=== PATIENT | male | born 1950 | race Two or more races ===

== ENCOUNTER → 2019-10-02 | Outpatient (CLI) | payer MEDICAID ==
[~2019-10-02] MED LIST: ASPI81CH43 PO; ATENPOW10 PO; ATOR10TA PO; DOCU1CAP31 PO; FLUT1SPR5 EACHNOSTRI; LEVO75TA6 PO; LISI-648 PO; METF-370 PO; METO25TA5 PO; POTA10TA51 PO; RANO500T2 PO; RANO500T3 PO; TICA90TA PO
== END | disposition home or self-care (01) ==
LOC: Rad HDHVI 13:48
PROVIDERS: ATTEND Internal Medicine
DX: I07.1 Rheumatic tricuspid insufficiency (principal); I25.10 Atherosclerotic heart disease of native coronary artery without angina pectoris
CPT/HCPCS: 93306

== ENCOUNTER → 2019-10-14 | Outpatient (CLI) | payer MEDICAID ==
[~2019-10-14] VITALS: Ht 172.7 cm; Wt 113.4 kg
[~2019-10-14] MED LIST changes: +ADENOSINE 90 MG/30 ML INJ IV ONE; +ADENOSINE 95 MG in GIVE UN-DILUTED 0 ML IV ONE; -ATOR10TA PO; -DOCU1CAP31 PO; -FLUT1SPR5 EACHNOSTRI; -LEVO75TA6 PO; -LISI-648 PO; -METO25TA5 PO; -POTA10TA51 PO; -RANO500T2 PO; -RANO500T3 PO; -TICA90TA PO
== END | disposition home or self-care (01) ==
LOC: Rad HDHVI 07:41
PROVIDERS: ATTEND Internal Medicine
DX: Z01.810 Encounter for preprocedural cardiovascular examination (principal); I25.10 Atherosclerotic heart disease of native coronary artery without angina pectoris; I10 Essential (primary) hypertension; I25.2 Old myocardial infarction; E11.9 Type 2 diabetes mellitus without complications; E78.00 Pure hypercholesterolemia, unspecified; Z95.2 Presence of prosthetic heart valve; Z82.49 Family history of ischemic heart disease and other diseases of the circulatory system
CPT/HCPCS: 78452; 82962; 93005; 96374; 96375; A9500; J0153

== ENCOUNTER → 2019-11-13 | Outpatient (CLI) | payer MEDICAID ==
[~2019-11-13] VITALS: Ht 172.7 cm; Wt 107.5 kg
[~2019-11-13] MED LIST changes: -ADENOSINE 90 MG/30 ML INJ IV ONE; -ADENOSINE 95 MG in GIVE UN-DILUTED 0 ML IV ONE; +ATOR10TA PO; +DOCU1CAP31 PO; +FLUT1SPR5 EACHNOSTRI; +LEVO75TA6 PO; +LISI-648 PO; +METO25TA5 PO; +POTA10TA51 PO; +RANO500T2 PO; +RANO500T3 PO; +TICA90TA PO
[2019-11-13 09:05] VITALS: BP 142/89
--- NOTE | 2019-11-13 09:05 | NUR ---
PATIENT INTO CLINIC FOR SCHEDULED PREOP, AAOX4, AMBULATORY, BREATHING EVEN AND UNLABORED.
[2019-11-13 09:33] VITALS: BP 138/84
--- NOTE | 2019-11-13 09:33 | NUR ---
Pre-Op Discharge Summary: See e-MAR for any medications given for this visit. Pre-op orders received and carried out per MD of EKG, LABS and chest xrays. Patient given a copy of EKG with instructions to go to [facility] out patient for further follow up care.
[2019-11-13 12:06] LABS: Basophils # (auto) 0.1 10 ^3/uL (0-0.2); Basophils % (auto) 0.7 % (0.0-2.0); Eosinophils # (auto) 0 10 ^3/uL (0-0.8); Eosinophils % (auto) 0.7 % (0.0-7.0); Hematocrit 51.8 % (41.0-53.0); Hemoglobin 17.3 g/dL (13.5-17.5); Lymphocytes # (auto) 1.8 10 ^3/uL (0.4-5.4); Lymphocytes % (auto) 24.2 % (10.0-50.0); Mean Corpuscular Hemoglobin 30.3 pg (28.0-32.0); Mean Corpuscular Hgb Conc. 33.4 g/dL (32.0-36.0); Mean Corpuscular Volume 90.6 fL (80.0-100.0); Monocytes # (auto) 0.7 10 ^3/uL (0-1.3); Monocytes % (auto) 9.9 % (0.0-12.0); Neutrophils # (auto) 4.8 10 ^3/uL (1.6-8.6); Neutrophils % (auto) 64.5 % (37.0-80.0); Nucleated Red Blood Cells % 0.1 %; Platelet Count (auto) 338 10^3/uL (140-450); Red Blood Cells 5.72 10^6/uL (4.5-5.90); Red Cell Distribution Width 13.9 % (11.8-14.3); White Blood Cell 7.4 10^3/uL (4.4-10.8)
[2019-11-13 12:12] LABS: BUN/Creatinine Ratio 12.7; Calcium 10.2 mg/dL (8.5-10.1)
[2019-11-13 12:18] LABS: INR 1.02 (0.9-1.15); Partial Thromboplastin Time 29.1 sec (23.64-32.05)
== END | disposition home or self-care (01) ==
LOC: Rad HDHVI 08:59
PROVIDERS: ATTEND Internal Medicine
DX: Z01.812 Encounter for preprocedural laboratory examination (principal); E11.9 Type 2 diabetes mellitus without complications; I25.10 Atherosclerotic heart disease of native coronary artery without angina pectoris; I10 Essential (primary) hypertension; D64.9 Anemia, unspecified; R79.1 Abnormal coagulation profile; R94.39 Abnormal result of other cardiovascular function study; R07.9 Chest pain, unspecified; Z95.0 Presence of cardiac pacemaker
CPT/HCPCS: 36415; 71046; 80048; 85025; 85610; 85730; 93005; G0463

== ENCOUNTER 2019-11-20 06:56 | Day surgery (SDC) | payer MEDICAID ==
[~2019-11-20] VITALS: Ht 172.7 cm; Wt 107.5 kg
[~2019-11-20 06:56] MED LIST changes: -ATENPOW10 PO; -FLUT1SPR5 EACHNOSTRI; -POTA10TA51 PO; -RANO500T2 PO; -TICA90TA PO
[2019-11-20] MEDS ORDERED: fentaNYL CITRATE 100 MCG/2 ML VL ONE (07:49)
[2019-11-20] MEDS ORDERED: VERAPAMIL 2.5MG/ML INJ 2ML VIAL IV ONE (07:49)
[2019-11-20] MEDS ORDERED: HEPARIN SODIUM (PORCINE) 5000 UNITS/ML 1ML VIAL ONE (07:49)
[2019-11-20] MEDS ORDERED: ATROPINE SULF 1 MG/10ml SYR ONE (07:49)
[2019-11-20] MEDS ORDERED: ANGIOMAX 250 MG VIAL IV ONE ×2 (07:49→10:30)
[2019-11-20] MEDS ORDERED: IODIXANOL 320MG/ML 100ML BTL IV ONE (07:50)
[2019-11-20] MEDS ORDERED: SODIUM CHL 0.9% 50 ML ONE ×2 (07:50→10:30)
[2019-11-20] MEDS ORDERED: MIDAZOLAM HCL 1MG/1ML-2 ML VIAL ONE (07:50)
[2019-11-20] MEDS ORDERED: LIDOCAINE 2%HCL (LOCAL ANESTH.) INJ 20ML MDV ONE (07:50)
[2019-11-20] MEDS ORDERED: IOHEXOL 350 MG/ML 100ML IJ ONE (10:22)
[2019-11-20] MEDS ORDERED: TICAGRELOR 90 MG TAB ONE (10:45)
[2019-11-20] MEDS ORDERED: DOCUSATE SOD 100 MG CAP PO PRN (11:00)
[2019-11-20] MEDS ORDERED: ACETAMINOPHEN 500 MG TAB PO PRN (11:00)
[2019-11-20] MEDS ORDERED: HYDROcodone-ACET 5/325MG TAB PO PRN (11:00)
[2019-11-20] MEDS ORDERED: NITROGLYCERIN 0.4 MG SL TAB SL PRN (11:00)
[2019-11-20] MEDS ORDERED: ONDANSETRON HCL 4 MG/2 ML VIAL IV PRN (11:00)
[2019-11-20] MEDS ORDERED: MORPHINE SULF INJ 2 MG/ML SYRINGE 1ML IV PRN (11:00)
[2019-11-20] MEDS ORDERED: DEXTROSE (50%) 50ML SYRG IV PRN (11:00)
[2019-11-20] MEDS ORDERED: RANOLAZINE ER 500 MG TAB PO ONE (11:30)
[2019-11-20] MEDS ORDERED: InsuLIN REG 1unit/0.01ml Soln (100units/ml) SC SCH (11:30)
[2019-11-20] MEDS ORDERED: ACCU-CHEK COMFORT CURVE STRIP VI SCH (11:30)
[2019-11-20] MEDS ORDERED: LEVOTHYROXINE SODIUM 25 MCG TAB PO ONE (11:30)
[2019-11-20] MEDS ORDERED: METOPROLOL TARTRATE 25 MG TAB PO ONE (11:30)
[2019-11-20 12:29] LABS: Albumin 3.6 g/dL (3.4-5.0); Calcium 9.2 mg/dL (8.5-10.1)
[2019-11-20 12:33] LABS: BUN/Creatinine Ratio 16.4; Bilirubin, Total 0.5 mg/dL (0.2-1.0); Total Protein 6.4 g/dL (6.4-8.2)
[2019-11-20] MEDS ORDERED: LISINOPRIL 10 MG TAB PO SCH (18:00)
[2019-11-20] MEDS ORDERED: ASPirin 81 mg TAB PO SCH (18:00)
[2019-11-20] MEDS ORDERED: RANOLAZINE ER 500 MG TAB PO SCH (22:00)
[2019-11-20] MEDS ORDERED: ATORVASTATIN 20 MG TAB PO SCH (22:00)
[2019-11-20] MEDS ORDERED: TICAGRELOR 90 MG TAB PO SCH (22:00)
[2019-11-21] MEDS ORDERED: METOPROLOL TARTRATE 25 MG TAB PO SCH (07:00)
[2019-11-21] MEDS ORDERED: LEVOTHYROXINE SODIUM 25 MCG TAB PO SCH (10:00)
== END 2019-11-20 16:14 | disposition home or self-care (01) ==
LOC: CATH 06:56
PROVIDERS: ATTEND Internal Medicine
DX: R94.39 Abnormal result of other cardiovascular function study (principal); I25.10 Atherosclerotic heart disease of native coronary artery without angina pectoris; E78.00 Pure hypercholesterolemia, unspecified; M19.90 Unspecified osteoarthritis, unspecified site; I25.2 Old myocardial infarction; Z95.5 Presence of coronary angioplasty implant and graft; I10 Essential (primary) hypertension; Z79.82 Long term (current) use of aspirin; Z11.59 Encounter for screening for other viral diseases; Z79.899 Other long term (current) drug therapy; Z98.890 Other specified postprocedural states
CPT/HCPCS: 36415; 80053; 82962; 93458; 93571; C1725; C1726; C1769; C1874; C1887; C1894; C9607; J0583; J1644; J2250; J3010; Q9967; U0003; 99152; 99153; C9601

== ENCOUNTER 2019-11-22 05:41 | Inpatient (IN) | payer MEDICAID ==
[~2019-11-22] VITALS: Ht 170.2 cm; Wt 69.1 kg
[~2019-11-22 05:41] MED LIST changes: -RANO500T3 PO
[2019-11-22 08:40] LABS: Basophils # (auto) 0 10 ^3/uL (0-0.2); Basophils % (auto) 0.2 % (0.0-2.0); Eosinophils # (auto) 0 10 ^3/uL (0-0.8); Eosinophils % (auto) 0.1 % (0.0-7.0); Hematocrit 52.3 % (41.0-53.0); Hemoglobin 16.9 g/dL (13.5-17.5); Lymphocytes # (auto) 0.7 10 ^3/uL (0.4-5.4); Lymphocytes % (auto) 5.4 % (10.0-50.0); Mean Corpuscular Hemoglobin 29.1 pg (28.0-32.0); Mean Corpuscular Hgb Conc. 32.3 g/dL (32.0-36.0); Mean Corpuscular Volume 90.2 fL (80.0-100.0); Monocytes # (auto) 1.2 10 ^3/uL (0-1.3); Monocytes % (auto) 9.7 % (0.0-12.0); Neutrophils # (auto) 10.6 10 ^3/uL (1.6-8.6); Neutrophils % (auto) 84.6 % (37.0-80.0); Platelet Count (auto) 306 10^3/uL (140-450); Red Cell Distribution Width 14.3 % (11.8-14.3); White Blood Cell 12.6 10^3/uL (4.4-10.8)
[2019-11-22 08:55] LABS: Calcium 11.1 mg/dL (8.5-10.1); Magnesium 2.7 mg/dL (1.6-2.6); Potassium 4.1 mmol/L (3.5-5.1)
[2019-11-22 09:03] LABS: BUN/Creatinine Ratio 21.4; Bilirubin, Total 0.7 mg/dL (0.2-1.0); Total Protein 7.8 g/dL (6.4-8.2)
[2019-11-22 10:22] LABS: Urine Bacteria FEW /hpf (None Seen); Urine Blood Negative /uL (Negative); Urine Mucus FEW (None Seen); Urine Specific Gravity 1.037 (1.001-1.035); Urine WBC 3 /hpf (0 - 3)
[2019-11-22] MEDS ORDERED: ONDANSETRON HCL 4 MG/2 ML VIAL IV ONE (10:30)
[2019-11-22] MEDS ORDERED: MORPHINE SULFATE 4 MG/ML SYR/VIAL IV ONE (10:30)
[2019-11-22] MEDS ORDERED: NITROGLYCERIN 0.4 MG SL TAB SL PRN (12:30)
[2019-11-22] MEDS ORDERED: MORPHINE SULF INJ 2 MG/ML SYRINGE 1ML IV PRN (12:30)
[2019-11-22] MEDS ORDERED: GASTROGRAFIN 120 ML SOL ONE (12:38)
[2019-11-22] MEDS ORDERED: DEXTROSE (50%) 50ML SYRG IV PRN (13:00)
[2019-11-22] MEDS ORDERED: cefTRIAXone 1GM/50ML D5W 50 ML IV ONE (13:00)
[2019-11-22] MEDS ORDERED: TICA90TA PO (13:52)
[2019-11-22] MEDS ORDERED: RANO500T2 PO (13:52)
[2019-11-22] MEDS ORDERED: FLUT1SPR5 EACHNOSTRI (13:52)
[2019-11-22] MEDS: SODIUM CHLORIDE 0.9% 1,000 ML IV SCH (14:04)
[2019-11-22] MEDS: FAMOTIDINE (10MG/ML) 2ML VL IV SCH (14:39)
[2019-11-22] MEDS: metroNIDAZOLE 500MG/100ML 100 ML IV SCH (14:39)
[2019-11-22] MEDS: MORPHINE SULF INJ 2 MG/ML SYRINGE 1ML IV PRN ×2 (16:40→21:27)
[2019-11-22] MEDS: PROMETHAZINE HCL 25 MG/ML 1ML IV PRN ×2 (16:40→21:27)
--- NOTE | 2019-11-22 17:47 | NUR ---
Telemetry admit from ER LAZARO SMITH admitted to Telemetry unit after SBAR received from ELEVATOR BUILDER. Patient oriented to Kia Gonzales RN primary RN, unit, room, bed, and unit policies regarding patient care and visiting hours. Patient now on continuous telemetry monitoring, tele box # 28 and telemetry reading on arrival to unit is Sinus Tachycardia 110 bpm. Patient weighed by bedscale and encouraged to call if they need something. All questions and concerns addressed, patient verbalized understanding.
[2019-11-22] MEDS: InsuLIN REG 1unit/0.01ml Soln (100units/ml) SC SCH (18:00)
[2019-11-22] MEDS: ACCU-CHEK COMFORT CURVE STRIP VI SCH (18:25)
--- NOTE | 2019-11-22 19:37 | NUR ---
CLOSING SHIFT NOTE ENDORSE CARE TO FELT [employer]AT STEAMER RN CAIO. PATIENT HAS NO S/S OF DISTRESS/SOB OR PAIN AT THIS TIME.
[2019-11-22 22:00] VITALS: BP 141/87
--- NOTE | 2019-11-22 22:30 | NUR ---
heart rated elevated due to being on commode for vitals at 2200. patient heart rate back in bed is 105
[2019-11-23] MEDS: metroNIDAZOLE 500MG/100ML 100 ML IV SCH ×4 (01:12→21:13)
[2019-11-23] MEDS: SODIUM CHLORIDE 0.9% 1,000 ML IV SCH ×2 (01:13→09:14)
[2019-11-23] MEDS: ACCU-CHEK COMFORT CURVE STRIP VI SCH ×4 (01:25→17:58)
[2019-11-23] MEDS: FAMOTIDINE (10MG/ML) 2ML VL IV SCH ×2 (01:26→12:35)
[2019-11-23] MEDS: MORPHINE SULF INJ 2 MG/ML SYRINGE 1ML IV PRN ×4 (01:31→21:13)
[2019-11-23 05:00] VITALS: BP 142/86
[2019-11-23] MEDS: InsuLIN REG 1unit/0.01ml Soln (100units/ml) SC SCH ×4 (06:00→18:00)
[2019-11-23 07:18] LABS: Basophils # (auto) 0 10 ^3/uL (0-0.2); Basophils % (auto) 0.3 % (0.0-2.0); Eosinophils # (auto) 0 10 ^3/uL (0-0.8); Eosinophils % (auto) 0.2 % (0.0-7.0); Hematocrit 51.7 % (41.0-53.0); Lymphocytes # (auto) 1.7 10 ^3/uL (0.4-5.4); Lymphocytes % (auto) 10.4 % (10.0-50.0); Mean Corpuscular Hemoglobin 29.8 pg (28.0-32.0); Mean Corpuscular Hgb Conc. 32.8 g/dL (32.0-36.0); Mean Corpuscular Volume 90.7 fL (80.0-100.0); Monocytes # (auto) 1.7 10 ^3/uL (0-1.3); Monocytes % (auto) 10.8 % (0.0-12.0); Neutrophils # (auto) 12.4 10 ^3/uL (1.6-8.6); Neutrophils % (auto) 78.3 % (37.0-80.0); Platelet Count (auto) 217 10^3/uL (140-450); Red Cell Distribution Width 14.4 % (11.8-14.3); White Blood Cell 15.8 10^3/uL (4.4-10.8)
--- NOTE | 2019-11-23 07:36 | NUR ---
PER CAIO HIS SHIFT NG OUTPUT IS 200
[2019-11-23 07:40] LABS: Albumin 3.8 g/dL (3.4-5.0); Anion Gap 12 (5-15); Blood Urea Nitrogen 31 mg/dL (7-18); Calcium 9.2 mg/dL (8.5-10.1); Carbon Dioxide 18 mmol/L (21-32); Chloride 112 mmol/L (98-107); Glucose 145 mg/dL (74-106); Sodium 142 mmol/L (136-145)
[2019-11-23 07:43] LABS: Alanine Aminotransferase 22 U/L (16-61); Aspartate Aminotransferase 9 U/L (15-37); BUN/Creatinine Ratio 24.6; GFR African American 73 mL/min; GFR Non-African American 61 mL/min
[2019-11-23 07:45] LABS: Alkaline Phosphatase 72 U/L (45-117); Bilirubin, Total 0.6 mg/dL (0.2-1.0); Total Protein 7.5 g/dL (6.4-8.2)
[2019-11-23 08:00] VITALS: BP 158/83
--- NOTE | 2019-11-23 08:00 | NUR ---
Opening Shift Note Assumed care of patient, awake and alert. No S/S of distress/SOB or pain. Instructed on POC and to call for assist PRN, will continue to monitor for changes Q1hr and PRN. Bed locked in lowest position with two side rails up and call light in reach.
[2019-11-23 09:00] VITALS: BP 158/83
[2019-11-23] MEDS: cefTRIAXone 1GM/50ML D5W 50 ML IV SCH (09:36)
[2019-11-23] MEDS: ENOXAPARIN SOD 40 MG/0.4 ML SYRINGE SC SCH (09:36)
[2019-11-23] MEDS: D5W/SOD CHL 0.45%/KCL 20MEQ 1,000 ML IV SCH (17:51)
--- NOTE | 2019-11-23 18:10 | NUR ---
NG TUBE CLAMPED PATIENT TOLERATING WELL.
--- NOTE | 2019-11-23 18:47 | NUR ---
OUT PUT PER MY SHIFT IS 50ML
[2019-11-23 22:00] VITALS: BP 137/73
[2019-11-24] MEDS: ACCU-CHEK COMFORT CURVE STRIP VI SCH ×4 (00:10→17:47)
[2019-11-24] MEDS: FAMOTIDINE (10MG/ML) 2ML VL IV SCH ×2 (00:10→15:52)
[2019-11-24] MEDS: D5W/SOD CHL 0.45%/KCL 20MEQ 1,000 ML IV SCH ×3 (01:50→18:11)
[2019-11-24 05:00] VITALS: BP 132/75
[2019-11-24] MEDS: metroNIDAZOLE 500MG/100ML 100 ML IV SCH ×3 (05:10→21:22)
[2019-11-24] MEDS: MORPHINE SULF INJ 2 MG/ML SYRINGE 1ML IV PRN ×3 (05:10→21:41)
[2019-11-24] MEDS: InsuLIN REG 1unit/0.01ml Soln (100units/ml) SC SCH ×4 (05:11→18:00)
--- NOTE | 2019-11-24 06:26 | NUR ---
LAZARO DID NOT HAVE ANY EPISODES OF NAUSEA OR VOMITING FOR SHIFT. PATIENT TOLERATED WELL.
[2019-11-24 07:20] LABS: Basophils # (auto) 0 10 ^3/uL (0-0.2); Basophils % (auto) 0.3 % (0.0-2.0); Eosinophils # (auto) 0.1 10 ^3/uL (0-0.8); Eosinophils % (auto) 1.5 % (0.0-7.0); Hematocrit 44.8 % (41.0-53.0); Hemoglobin 14.7 g/dL (13.5-17.5); Lymphocytes # (auto) 0.9 10 ^3/uL (0.4-5.4); Lymphocytes % (auto) 9.9 % (10.0-50.0); Mean Corpuscular Hemoglobin 29.9 pg (28.0-32.0); Mean Corpuscular Hgb Conc. 32.7 g/dL (32.0-36.0); Mean Corpuscular Volume 91.4 fL (80.0-100.0); Monocytes # (auto) 1.1 10 ^3/uL (0-1.3); Monocytes % (auto) 12.5 % (0.0-12.0); Neutrophils # (auto) 6.5 10 ^3/uL (1.6-8.6); Neutrophils % (auto) 75.8 % (37.0-80.0); Platelet Count (auto) 241 10^3/uL (140-450); Red Cell Distribution Width 14.4 % (11.8-14.3); White Blood Cell 8.6 10^3/uL (4.4-10.8)
[2019-11-24 07:41] LABS: Calcium 8.6 mg/dL (8.5-10.1); Potassium 3.6 mmol/L (3.5-5.1)
[2019-11-24 07:45] LABS: BUN/Creatinine Ratio 33.3
[2019-11-24 08:00] VITALS: BP 124/81
[2019-11-24 09:00] VITALS: BP 124/81
[2019-11-24] MEDS: cefTRIAXone 1GM/50ML D5W 50 ML IV SCH (09:26)
[2019-11-24] MEDS: ENOXAPARIN SOD 40 MG/0.4 ML SYRINGE SC SCH (09:26)
[2019-11-24] MEDS ORDERED: HEPARIN DRIP/D5W 100UNITS/ML 250 ML IV SCH (09:47)
--- NOTE | 2019-11-24 11:41 | NUR ---
Nutrition Assessment Notes Please see attached link for complete assessment Est Energy needs BW 83 [id number] kcals (23-25 kcal/kgBW), Est Protein needs: 83-91 gms/day (1.0-1.1 gm/kgBW). Will continue to monitor and reassess prn. Addendum: 11/24/19 at [address] Amended: Links added.
[2019-11-24 12:45] LABS: Basophils # (auto) 0 10 ^3/uL (0-0.2); Basophils % (auto) 0.3 % (0.0-2.0); Eosinophils # (auto) 0.1 10 ^3/uL (0-0.8); Eosinophils % (auto) 1.6 % (0.0-7.0); Hematocrit 44.5 % (41.0-53.0); Hemoglobin 14.5 g/dL (13.5-17.5); Lymphocytes # (auto) 0.7 10 ^3/uL (0.4-5.4); Lymphocytes % (auto) 10.3 % (10.0-50.0); Mean Corpuscular Hemoglobin 29.8 pg (28.0-32.0); Mean Corpuscular Hgb Conc. 32.6 g/dL (32.0-36.0); Mean Corpuscular Volume 91.2 fL (80.0-100.0); Monocytes # (auto) 0.8 10 ^3/uL (0-1.3); Monocytes % (auto) 11.6 % (0.0-12.0); Neutrophils # (auto) 5.5 10 ^3/uL (1.6-8.6); Neutrophils % (auto) 76.2 % (37.0-80.0); Platelet Count (auto) 239 10^3/uL (140-450); Red Blood Cells 4.88 10^6/uL (4.5-5.90); Red Cell Distribution Width 14.4 % (11.8-14.3); White Blood Cell 7.3 10^3/uL (4.4-10.8)
[2019-11-24 13:00] VITALS: BP 136/83
[2019-11-24 13:00] LABS: INR 1.04 (0.9-1.15); Partial Thromboplastin Time 27.1 sec (23.0-31.2)
--- NOTE | 2019-11-24 13:22 | NUR ---
HEPARIN JUST STARTED 10ML PER PHARMACY
[2019-11-24 17:00] VITALS: BP 121/70
--- NOTE | 2019-11-24 18:38 | NUR ---
PATIENT TOLERATING NG CLAMP WELL PATIENT ALSO TOLERATING CLEAR LIQUIDS.
--- NOTE | 2019-11-24 19:00 | NUR ---
OPENING NOTE Received report from day shift RN. Patient is A&O X's 4 with no s/s of distress and reports no pain at this time. Educated patient on POC and to use call light when in need of assistance/when getting up to commode. Patient verbalized understanding. Patient has NG tube to left nare that is clamped per MD order. Heparin is infusing at 10ml/hr. Bed is in lowest/locked position with side rails up X's 2 and call light is within reach of patient. Will continue care. Patient NPO at midnight for procedure. Patient verbalized understanding.
--- NOTE | 2019-11-24 19:38 | NUR ---
CALLED LAB Per lab, she will have someone come take labs for PT/PTT.
[2019-11-24 20:48] LABS: INR 1.08 (0.9-1.15); Partial Thromboplastin Time 28.2 sec (23.0-31.2)
--- NOTE | 2019-11-24 21:04 | NUR ---
PHARMACY: HEPARIN PTT at 28.2 Per protocol, give bolus 5,000 unit and increase rate 3ml/hr. Heparin will now be infusing at 13ml/hr Pharmacy to put in order for bolus and increase rate on emar.
[2019-11-24] MEDS ORDERED: HEPARIN SODIUM (PORCINE) 5000 UNITS/ML 1ML VIAL IV ONE (21:15)
[2019-11-24] MEDS: HEPARIN DRIP/D5W 100UNITS/ML 250 ML IV SCH (21:18)
--- NOTE | 2019-11-24 21:18 | NUR ---
HEPARIN: PTT at 28.2 Per protocol, bolus of 5,000 units were administered and rate now at 13ml/hr. RNShi at bedside for witness.
--- NOTE | 2019-11-24 22:11 | NUR ---
pain reassessment patient reports abdomen pain has subsided and rated it at a 4. patient also reports that it just comes and goes
--- NOTE | 2019-11-25 | NUR ---
HEPARIN STOPPED Per communication order, Heparin drip was stopped at this time. Patient has a procedure planned today on 11/25/2019
--- NOTE | 2019-11-25 | NUR ---
PATIENT NPO Patient verbalized understanding. food/bevarages removed from bedside.
[2019-11-25] MEDS: ACCU-CHEK COMFORT CURVE STRIP VI SCH ×4 (00:11→17:30)
[2019-11-25] MEDS: FAMOTIDINE (10MG/ML) 2ML VL IV SCH ×3 (01:10→23:59)
[2019-11-25] MEDS: MORPHINE SULF INJ 2 MG/ML SYRINGE 1ML IV PRN ×4 (01:56→21:22)
[2019-11-25 02:13] LABS: INR 1.03 (0.9-1.15); Partial Thromboplastin Time 27.6 sec (23.0-31.2)
[2019-11-25 02:25] VITALS: BP 117/65
--- NOTE | 2019-11-25 02:26 | NUR ---
PAIN REASSESSMENT Patient resting in bed. No s/s of discomfort. Will continue care
[2019-11-25] MEDS: D5W/SOD CHL 0.45%/KCL 20MEQ 1,000 ML IV SCH (02:50)
[2019-11-25 05:00] VITALS: BP 138/59
[2019-11-25] MEDS: InsuLIN REG 1unit/0.01ml Soln (100units/ml) SC SCH ×4 (06:00→17:31)
[2019-11-25] MEDS: metroNIDAZOLE 500MG/100ML 100 ML IV SCH ×3 (06:13→21:11)
--- NOTE | 2019-11-25 06:15 | NUR ---
IV removal Patient c/o pain to IV site. When flushed, patient c/o more pain at the site. right FA is bruised. 22G IV to right FA DC'd with sterile technique, catheter fully intact. Pressure dressing applied to site. Patient tolerated procedure well.
--- NOTE | 2019-11-25 06:16 | NUR ---
[facility] Provided patient with wipes. Patient independent and reported will do it himself. Educated patient on how to properly use wipes and their purpose. Patient verbalized understanding.
[2019-11-25 07:10] LABS: Basophils # (auto) 0 10 ^3/uL (0-0.2); Basophils % (auto) 0.5 % (0.0-2.0); Eosinophils # (auto) 0.1 10 ^3/uL (0-0.8); Eosinophils % (auto) 1.5 % (0.0-7.0); Hematocrit 42.9 % (41.0-53.0); Hemoglobin 14.3 g/dL (13.5-17.5); Lymphocytes # (auto) 0.8 10 ^3/uL (0.4-5.4); Lymphocytes % (auto) 13.8 % (10.0-50.0); Mean Corpuscular Hemoglobin 30.3 pg (28.0-32.0); Mean Corpuscular Hgb Conc. 33.4 g/dL (32.0-36.0); Mean Corpuscular Volume 90.8 fL (80.0-100.0); Monocytes # (auto) 0.7 10 ^3/uL (0-1.3); Monocytes % (auto) 12.8 % (0.0-12.0); Neutrophils % (auto) 71.4 % (37.0-80.0); Platelet Count (auto) 220 10^3/uL (140-450); Red Blood Cells 4.72 10^6/uL (4.5-5.90); Red Cell Distribution Width 14.2 % (11.8-14.3); White Blood Cell 5.7 10^3/uL (4.4-10.8)
[2019-11-25 07:31] LABS: INR 1.07 (0.9-1.15)
--- NOTE | 2019-11-25 07:40 | NUR ---
Off Unit Patient taken to pre-op for procedure.
[2019-11-25] MEDS ORDERED: NEOSTIGMINE 1 MG/ML INJ (10mg/10ML VIAL) IV ONE (08:05)
[2019-11-25] MEDS ORDERED: GLYCOPYRROLATE 0.2 MG/ML 1ML VIAL IV ONE (08:05)
[2019-11-25] MEDS ORDERED: ceFAZolin 1GM/50ML 50 ML IV ONE (08:06)
[2019-11-25] MEDS ORDERED: POVIDONE IODINE 10 % TOPICAL OINT 30GM TOP ONE (08:14)
[2019-11-25] MEDS ORDERED: MIDAZOLAM HCL 1MG/1ML-2 ML VIAL ONE (08:35)
[2019-11-25] MEDS ORDERED: ROCURONIUM 10MG/ML 10ML VIAL IV ONE ×2 (08:35→08:57)
[2019-11-25] MEDS ORDERED: fentaNYL CITRATE 100 MCG/2 ML VL ONE (08:35)
[2019-11-25] MEDS ORDERED: SUCCINYLCHOLINE CHLORIDE 20 MG/ML 10ML VIAL IV ONE (08:36)
[2019-11-25] MEDS ORDERED: PROPOFOL 10 MG/ML 20 ML IV ONE (08:57)
[2019-11-25] MEDS ORDERED: ONDANSETRON HCL 4 MG/2 ML VIAL IV PRN (10:15)
[2019-11-25] MEDS ORDERED: hydrALAZINE HCL 20 MG/ML VL IV PRN (10:15)
[2019-11-25] MEDS ORDERED: ePHEDrine SULFATE 50 MG/ML AMP IV PRN (10:15)
[2019-11-25] MEDS: HYDROmorphone HCL 2 MG/ML VL IV PRN ×4 (10:25→11:02)
--- NOTE | 2019-11-25 11:14 | NUR ---
On unit Patient brought back to unit after having hernia repair done. Patient is awake but drowsy, NGT connected to LCS, midline dressing to abdomen slightly soiled but intact. Abdominal binder in place. SCD's on to both legs. Call light placed within reach and patient encouraged to call for assistance.
[2019-11-25] MEDS: PROMETHAZINE HCL 25 MG/ML 1ML IV PRN ×2 (11:51→17:25)
[2019-11-25] MEDS: cefTRIAXone 1GM/50ML D5W 50 ML IV SCH (11:52)
--- NOTE | 2019-11-25 11:52 | NUR ---
Hospitalist Rounded Dr. Bowen at bedside.
[2019-11-25 12:30] VITALS: BP 136/74
[2019-11-25] MEDS: HEPARIN DRIP/D5W 100UNITS/ML 250 ML IV SCH (16:29)
[2019-11-25 16:53] VITALS: BP 126/85
--- NOTE | 2019-11-25 19:00 | NUR ---
Opening Shift Note Assumed care of patient, awake and alert. No S/S of distress/SOB or pain. Instructed on POC and to call for assist PRN, will continue to monitor for changes Q1hr and PRN.
[2019-11-25 23:10] VITALS: BP 136/78
[2019-11-26] MEDS: ACCU-CHEK COMFORT CURVE STRIP VI SCH ×4 (00:07→17:50)
[2019-11-26] MEDS: PROMETHAZINE HCL 25 MG/ML 1ML IV PRN (01:17)
[2019-11-26] MEDS: MORPHINE SULF INJ 2 MG/ML SYRINGE 1ML IV PRN ×3 (01:18→09:41)
[2019-11-26] MEDS: metroNIDAZOLE 500MG/100ML 100 ML IV SCH ×3 (05:26→21:15)
[2019-11-26 05:27] VITALS: BP 130/80
[2019-11-26] MEDS: InsuLIN REG 1unit/0.01ml Soln (100units/ml) SC SCH ×4 (05:42→17:51)
[2019-11-26 06:25] LABS: Basophils # (auto) 0 10 ^3/uL (0-0.2); Basophils % (auto) 0.2 % (0.0-2.0); Eosinophils # (auto) 0 10 ^3/uL (0-0.8); Eosinophils % (auto) 0.4 % (0.0-7.0); Hematocrit 43.6 % (41.0-53.0); Hemoglobin 14.7 g/dL (13.5-17.5); Lymphocytes # (auto) 0.5 10 ^3/uL (0.4-5.4); Lymphocytes % (auto) 6.2 % (10.0-50.0); Mean Corpuscular Hemoglobin 30.5 pg (28.0-32.0); Mean Corpuscular Hgb Conc. 33.6 g/dL (32.0-36.0); Mean Corpuscular Volume 90.6 fL (80.0-100.0); Monocytes # (auto) 1.1 10 ^3/uL (0-1.3); Neutrophils % (auto) 79.2 % (37.0-80.0); Platelet Count (auto) 225 10^3/uL (140-450); Red Blood Cells 4.82 10^6/uL (4.5-5.90); Red Cell Distribution Width 14.1 % (11.8-14.3); White Blood Cell 7.5 10^3/uL (4.4-10.8)
[2019-11-26] MEDS: SODIUM CHLORIDE 0.9% 1,000 ML IV SCH ×2 (06:52→23:10)
--- NOTE | 2019-11-26 07:00 | NUR ---
Opening Shift Note Received report on the patient. Awake lying in bed. Patient shows no signs of distress at this time. Discussed the plan of care with the patient. Bed in lowest position, side rails up x2, and the call light is within reach.
[2019-11-26 09:00] VITALS: BP 130/83
[2019-11-26] MEDS: cefTRIAXone 1GM/50ML D5W 50 ML IV SCH (09:40)
--- NOTE | 2019-11-26 12:22 | NUR ---
RESTARTED HEPARIN DRIP AT 13. NEXT PTT AT 1830.
[2019-11-26] MEDS: HEPARIN DRIP/D5W 100UNITS/ML 250 ML IV SCH (12:48)
[2019-11-26 12:51] VITALS: BP 128/66
[2019-11-26] MEDS ORDERED: HYDROmorphone HCL 2 MG/ML VL IV PRN (13:15)
[2019-11-26] MEDS: FAMOTIDINE (10MG/ML) 2ML VL IV SCH (13:44)
[2019-11-26] MEDS: HYDROmorphone HCL 2 MG/ML VL IV PRN ×2 (13:45→17:50)
--- NOTE | 2019-11-26 14:40 | NUR ---
Nutrition Followup Notes Pt wt is 84.0 kg Pt was sleeping, receiving O2 by face mask, with no relatives at bedside when rounded this morning. Pt is p/s surgery, is NPO with no diet order yet, and with no distress per RN doc. Will continue to monitor PO status, skin status, pertinent labs and weight trends. Will f/u in 2-3 days. Est Energy needs BW 83 [id number] kcals (23-25 kcal/kgBW), Est Protein needs: 83-91 gms/day (1.0-1.1 gm/kgBW). Will continue to monitor and reassess prn. LABS: Gluc 126 H GI: Pt had 2 BM on 11/24 per RN doc BS: 22 low risk Refer to wound assessment report for full details. PES: Altered nutrition related lab values r.t current chronic medical condition aeb elev BUN hyperglceymia Comments 1) advance diet as medically feasible 2) continue current plan of care 3) refer to CDE on DC
[2019-11-26 17:00] VITALS: BP 131/90
[2019-11-26] MEDS ORDERED: CLOPIDOGREL 300 MG TAB PO ONE (18:00)
[2019-11-26 18:41] LABS: INR 1.19 (0.9-1.15); Partial Thromboplastin Time 54.4 sec (23.0-31.2)
--- NOTE | 2019-11-26 18:54 | NUR ---
PTT IS 54.4. NO CHANGE IN HEPARIN DRIP.
--- NOTE | 2019-11-26 19:02 | NUR ---
ENDORSED CARE TO IVETH BARBOZA. PATIENT SHOWS NO SIGNS OF DISTRESS.
--- NOTE | 2019-11-26 19:20 | NUR ---
CONTACTED DR. TAYLOR To verify orders of Plavix 300mg tonight. Will await response from MD to administer medication. Heparin drip infusing at 13ml/hr.
--- NOTE | 2019-11-26 19:49 | NUR ---
RECEIVED RESPONSE BACK FROM MD TAYLOR Per Baldemar, D/C heparin after the ordered plavix bolus. Will continue with orders.
--- NOTE | 2019-11-26 19:57 | NUR ---
HEPARIN D/C Heparin was stopped at this time per MD request.
[2019-11-26 21:31] VITALS: BP 110/74
[2019-11-27] MEDS: FAMOTIDINE (10MG/ML) 2ML VL IV SCH ×2 (00:26→13:33)
[2019-11-27] MEDS: InsuLIN REG 1unit/0.01ml Soln (100units/ml) SC SCH ×4 (00:27→18:00)
[2019-11-27] MEDS: ACCU-CHEK COMFORT CURVE STRIP VI SCH ×4 (00:28→18:17)
[2019-11-27] MEDS: HYDROmorphone HCL 2 MG/ML VL IV PRN ×3 (04:46→21:23)
[2019-11-27 05:00] VITALS: BP 146/93
[2019-11-27] MEDS: metroNIDAZOLE 500MG/100ML 100 ML IV SCH (05:32)
[2019-11-27 06:18] LABS: Basophils # (auto) 0 10 ^3/uL (0-0.2); Basophils % (auto) 0.3 % (0.0-2.0); Eosinophils # (auto) 0.1 10 ^3/uL (0-0.8); Eosinophils % (auto) 1.4 % (0.0-7.0); Hematocrit 40.4 % (41.0-53.0); Hemoglobin 13.6 g/dL (13.5-17.5); Lymphocytes # (auto) 0.6 10 ^3/uL (0.4-5.4); Lymphocytes % (auto) 6.5 % (10.0-50.0); Mean Corpuscular Hemoglobin 30.1 pg (28.0-32.0); Mean Corpuscular Hgb Conc. 33.5 g/dL (32.0-36.0); Mean Corpuscular Volume 89.8 fL (80.0-100.0); Monocytes # (auto) 1.3 10 ^3/uL (0-1.3); Monocytes % (auto) 14.5 % (0.0-12.0); Neutrophils # (auto) 6.8 10 ^3/uL (1.6-8.6); Neutrophils % (auto) 77.3 % (37.0-80.0); Platelet Count (auto) 225 10^3/uL (140-450); White Blood Cell 8.7 10^3/uL (4.4-10.8)
[2019-11-27 06:29] LABS: BUN/Creatinine Ratio 19.4; Calcium 8.2 mg/dL (8.5-10.1)
[2019-11-27 06:47] LABS: Potassium 2.9 mmol/L (3.5-5.1)
--- NOTE | 2019-11-27 06:48 | NUR ---
CRITICAL POTASSIUM 2.9 RECEIVED AT 0647. WILL INFORM
--- NOTE | 2019-11-27 06:55 | NUR ---
LEFT MESSAGE WITH MD ABOUT POTASSIUM. WAITING FOR CALL BACK.
[2019-11-27] MEDS: PROMETHAZINE HCL 25 MG/ML 1ML IV PRN (08:25)
--- NOTE | 2019-11-27 08:35 | NUR ---
PAGED DR EDMONDS WITH CRITICAL K OF 2.9. AWAITING A CALL BACK.
[2019-11-27 09:00] VITALS: BP 152/81
[2019-11-27] MEDS: cefTRIAXone 1GM/50ML D5W 50 ML IV SCH (09:25)
[2019-11-27] MEDS: CLOPIDOGREL BISULFATE 75 MG TAB PO SCH (09:25)
[2019-11-27] MEDS: POTASSIUM CHL 20MEQ/100ML 100 ML IV SCH ×3 (11:08→15:36)
[2019-11-27 13:00] VITALS: BP 119/81
[2019-11-27] MEDS: SODIUM CHLORIDE 0.9% 1,000 ML IV SCH (15:52)
--- NOTE | 2019-11-27 16:37 | NUR ---
PT IS AT SBA LEVEL WITH ACTIVITIES. NURSING TO ASSIST PATIENT NEEDED.
[2019-11-27 17:00] VITALS: BP 142/88
--- NOTE | 2019-11-27 18:03 | NUR ---
IV removal IV DC'd with clean sterile technique, catheter fully intact. Pressure dressing applied to site. Patient tolerated well. NOTE:
--- NOTE | 2019-11-27 18:03 | NUR ---
IV insertion IV access obtained, via clean sterile technique by inserting 22 gauge catheter at the right hand after 2 attempt(s). IV secured properly. No trauma to site. Patient tolerated well. NOTE: []
--- NOTE | 2019-11-27 19:10 | NUR ---
Opening Shift Note Received report from aldair Valdivia RN. Assumed care of patient, awake and alert. No S/S of distress/SOB or pain. Patient has NG tube connected to LIS, canister registered 750ml of fluid. Instructed on POC and to call for assist PRN, will continue to monitor for changes Q1hr and PRN.
--- NOTE | 2019-11-27 21:23 | NUR ---
Given Dilaudid as ordered for abdominal pain. Will monitor
[2019-11-27 22:00] VITALS: BP 139/86
[2019-11-28] MEDS: FAMOTIDINE (10MG/ML) 2ML VL IV SCH ×2 (00:45→12:59)
[2019-11-28] MEDS: PROMETHAZINE HCL 25 MG/ML 1ML IV PRN ×2 (00:45→21:52)
[2019-11-28] MEDS: HYDROmorphone HCL 2 MG/ML VL IV PRN ×4 (02:29→17:21)
--- NOTE | 2019-11-28 02:44 | NUR ---
AMBULATION Assisted patient to ambulate to and from the bathroom. Patient states he had loose stools X 1
[2019-11-28 05:00] VITALS: BP 130/75
[2019-11-28] MEDS: InsuLIN REG 1unit/0.01ml Soln (100units/ml) SC SCH ×4 (06:00→16:38)
[2019-11-28] MEDS: ACCU-CHEK COMFORT CURVE STRIP VI SCH ×4 (06:05→16:38)
--- NOTE | 2019-11-28 06:35 | NUR ---
Given pain medication for abdominal pain of 8/10. Will monitor.
--- NOTE | 2019-11-28 06:59 | NUR ---
Replaced NG tube canister. Total output for this shift is 50ml.
[2019-11-28 08:00] LABS: Potassium 3.2 mmol/L (3.5-5.1)
[2019-11-28 08:05] LABS: Calcium 8.4 mg/dL (8.5-10.1); Magnesium 2.5 mg/dL (1.6-2.6)
[2019-11-28 09:00] VITALS: BP 114/72
[2019-11-28] MEDS: CLOPIDOGREL BISULFATE 75 MG TAB PO SCH (09:03)
[2019-11-28] MEDS: SODIUM CHLORIDE 0.9% 1,000 ML IV SCH (09:03)
[2019-11-28] MEDS ORDERED: POTASSIUM CHLORIDE 40 MEQ, LIDOCAINE 1% (LOCAL ANESTH.) 4 ML in SODIUM CHL 0.9% 100 ML IV ONE (12:00)
--- NOTE | 2019-11-28 12:43 | NUR ---
assessment Patient is a 69 year old male who is alert and oriented. Prior to admission patient lived home with his sister and functioned independently. Patient informed me he is able to care for his own ADLs. Per patient he will return home to his prior living arrangements post discharge and family will transport him home. Patient informed me he called 911 due to severe abdominal pain due to his hernia mesh. Patient was admitted and had surgery. Patient informed me he has been up ambulating and is doing well. Patient informed me he has fww, cane, and wheelchair in the home for his use if he needs it. Patient has no post discharge needs identified at this time. I informed patient he has a right to speak to a school social worker regarding all care. I informed patient he has a right to participate in any and all discharge planning. Patient does not have a POA and advanced directive. I have offered patient information on POA and advanced directives. I informed the patient the advantages and benefits of having an Advanced Directive. Patient verbalized understanding and agreed to discharge plan. Addendum: 11/28/19 at 1247 by Virginia GAVIRIA Amended: Links added.
--- NOTE | 2019-11-28 12:52 | NUR ---
Nutrition Followup Notes Wt: 85.5 kg Pt was sleeping, receiving O2 by face mask, with no relatives at bedside when rounded this morning. Pt is p/s surgery for SBO, is NPO with NG-LIS. pt now advanced to clear liq diet with no PO recorded yet. Est Energy needs BW 83 [id number] kcals (23-25 kcal/kgBW), Est Protein needs: 83-91 gms/day (1.0-1.1 gm/kgBW). Will continue to monitor and reassess prn. LABS: GLU 117 H, CA 8.4 L. GI: Pt had 3 BM yesterday per RN doc BS: 22 low risk Refer to wound assessment report for full details. PES: Altered nutrition related lab values r.t current chronic medical condition aeb elev BUN hyperglycemia Comments: Will continue to monitor PO status, skin status, pertinent labs and weight trends. Will f/u in 2-3 days. Rec: 1) advance diet as medically feasible. 2) continue current plan of care. 3) refer to CDE on DC
[2019-11-28 12:54] VITALS: BP 132/86
[2019-11-28 16:51] VITALS: BP 136/96
--- NOTE | 2019-11-28 19:20 | NUR ---
Opening Shift Note Received report on the patient from Laura day shift RN. Awake lying in bed. Patient shows no signs of distress at this time. Discussed the POC with the patient. Bed in lowest and locked position, rails up x2,call light is within reach. pt has been oriented to use of call light for assistance. will continue to monitor pt Q1H and PRN t/o shift.
--- NOTE | 2019-11-28 21:44 | NUR ---
pt used call light with c/o abd discomfort. pt stated he felt he was nauseated and going to throw up. pt was found to be pale and diaphoretic and shortness of breath upon assessment. NG tube was clamped and not hooked to suction upon initial assessment. pt was given his PRN nausea medication and hooked to continuous suction at this time and 250 ML of clear liquid was suctioned within the first 5 minutes and continues to drain. pt is now resting comfortably in bed with no s/s of distress an hooked to continuous suction at this time. will continue to monitor pt Q1H and PRN t/o shift.
[2019-11-28 22:00] VITALS: BP 132/82
--- NOTE | 2019-11-29 | NUR ---
pt HR went up to 140 BPM, pt was assessed and found to be SOB with wheezing and complaints of nausea and epigastric discomfort. suction to pt's NG tube was on continuos suction at this time and pt placed on supplemental oxygen and MD Bowen was paged. pt was laid back down in bed with HOB above 30 degrees and HR went down to 110 BPM. pt relaxed laying in bed with wheezes audibly heard with and without stethoscope. awaitng call back.
[2019-11-29] MEDS: ACCU-CHEK COMFORT CURVE STRIP VI SCH ×5 (00:02→23:52)
--- NOTE | 2019-11-29 00:12 | NUR ---
MD Guaman returned the page for MD Bowen. MD was notified of pt's current condition and medication orders were placed, as well as an order for oxygen, a communication order for the morning nurse to contact MD Bowen and update him on pt's condition over night and a pulmonary consult was placed for MD Woods.
[2019-11-29] MEDS ORDERED: levoFLOXacin 750MG 150 ML IV ONE (00:45)
[2019-11-29] MEDS ORDERED: methylPREDNISolone SOD SUCC 125 MG/2 ML VL IV ONE (00:45)
[2019-11-29] MEDS ORDERED: methylPREDNISolone SOD SUCC 125 MG/2 ML VL ONE (01:02)
[2019-11-29 01:04] VITALS: BP 132/82
[2019-11-29] MEDS: FAMOTIDINE (10MG/ML) 2ML VL IV SCH ×2 (01:07→11:55)
[2019-11-29] MEDS: LEVALBUTEROL HCL 1.25 MG/3 ML NEB NEB PRN ×2 (01:09→15:46)
[2019-11-29] MEDS: IPRATROPIUM BROM 0.5 MG/2.5ML INH SOL NEB PRN ×2 (01:09→15:45)
[2019-11-29] MEDS: HYDROmorphone HCL 2 MG/ML VL IV PRN ×5 (01:13→23:52)
--- NOTE | 2019-11-29 03:32 | NUR ---
pt lying in bed resting, no s/s of distress at this time.
--- NOTE | 2019-11-29 04:40 | NUR ---
Assisted pt to BSC and back into bed. pt resting with HOB above 30 degrees. pt was SOB upon transfer but relaxed and easedinto a normal breathing pattern after being assisted back to bed. Oxygen via nasal cannula still in place, NG tube stilll on continuous suction for the time being. awaiting imaging to do xr ordered earlier in the shift.
[2019-11-29 05:00] VITALS: BP 125/92
[2019-11-29] MEDS: InsuLIN REG 1unit/0.01ml Soln (100units/ml) SC SCH ×5 (05:21→23:52)
--- NOTE | 2019-11-29 05:40 | NUR ---
XR team at bedside for stat CXR, pt HR elevated to 156 BPM during imaging procedure but went back down to the 120s once pt was settled back into bed.
--- NOTE | 2019-11-29 07:18 | NUR ---
gave report to day shift RNPurnima. Endorsed request from MD Woodard to update MD Bowen about pt's condition over night and new orders that were placed.
[2019-11-29 09:00] VITALS: BP 138/82
[2019-11-29] MEDS: CLOPIDOGREL BISULFATE 75 MG TAB PO SCH (09:32)
--- NOTE | 2019-11-29 09:52 | NUR ---
DR EDMONDS PAGED AND RETURNED CALL ORDERS GIVEN WILL UPDATE ON ANY CHANGES.
--- NOTE | 2019-11-29 10:02 | NUR ---
PAGED DR. SALDIVAR
--- NOTE | 2019-11-29 10:29 | NUR ---
DR. SALDIVAR RETURNED CALL ORDERS GIVEN WILL CONTINUE TO MONITOR.
[2019-11-29] MEDS ORDERED: GASTROGRAFIN 120 ML SOL ONE (10:56)
[2019-11-29 14:00] VITALS: BP 125/76
--- NOTE | 2019-11-29 16:00 | NUR ---
PT REPORTS THAT HE ALREADY WALKED SEVERAL TIMES TO THE BATHROOM TODAY AND WOULD PREFER P.T. BE DONE TOMORROW.
[2019-11-29 17:00] VITALS: BP 145/94
[2019-11-29] MEDS: PROMETHAZINE HCL 25 MG/ML 1ML IV PRN (18:37)
--- NOTE | 2019-11-29 19:40 | NUR ---
Opening Shift Note Assumed care of patient, awake and alert. No S/S of distress/SOB or pain. Instructed on POC and to call for assist PRN. Per day RN, patient pending gastrograf bowel series at 2200. Bed in lowest locked position, call light within reach, side rails up x2, fall precautions in place. Will continue to monitor for changes Q1hr and PRN.
[2019-11-29] MEDS: BUDESONIDE (INHALATION) 0.5 MG/2 ML NEB NEB SCH (21:08)
[2019-11-29] MEDS: methylPREDNISolone SOD SUCC 40 MG/ML VL IV SCH (21:49)
[2019-11-29 22:00] VITALS: BP 113/70
--- NOTE | 2019-11-29 22:40 | NUR ---
Radiology Made multiple attempts to contact radiology in regards to pending gastrografin small bowel series pending at 2200, with no answer. Charge nurse made aware.
[2019-11-30] MEDS: FAMOTIDINE (10MG/ML) 2ML VL IV SCH ×2 (01:17→14:00)
[2019-11-30] MEDS: HYDROmorphone HCL 2 MG/ML VL IV PRN ×3 (03:41→20:40)
[2019-11-30] MEDS: LEVALBUTEROL HCL 1.25 MG/3 ML NEB NEB PRN ×2 (03:49→11:28)
[2019-11-30] MEDS: IPRATROPIUM BROM 0.5 MG/2.5ML INH SOL NEB PRN ×2 (03:50→11:28)
[2019-11-30 05:00] VITALS: BP 141/66
--- NOTE | 2019-11-30 05:00 | NUR ---
BM Patient had large watery BM in bed. Full linen change done and patient cleaned up.
[2019-11-30] MEDS: ACCU-CHEK COMFORT CURVE STRIP VI SCH ×3 (05:58→18:26)
[2019-11-30] MEDS: InsuLIN REG 1unit/0.01ml Soln (100units/ml) SC SCH ×3 (06:03→18:29)
[2019-11-30 09:00] VITALS: BP 136/94
[2019-11-30] MEDS: methylPREDNISolone SOD SUCC 40 MG/ML VL IV SCH ×2 (09:30→22:10)
[2019-11-30] MEDS: CLOPIDOGREL BISULFATE 75 MG TAB PO SCH (09:30)
[2019-11-30] MEDS: ENOXAPARIN SOD 40 MG/0.4 ML SYRINGE SC SCH (09:31)
--- NOTE | 2019-11-30 10:09 | NUR ---
IV insertion IV access obtained, via clean sterile technique by inserting 22 gauge catheter at right forearm After 3 attempt(s). IV secured properly. No trauma to site. Patient tolerated well. Addendum: 11/30/19 at 1011 by LEXIE CALDWELL RN RN site is left forearm
[2019-11-30] MEDS: BUDESONIDE (INHALATION) 0.5 MG/2 ML NEB NEB SCH ×2 (11:28→18:37)
--- NOTE | 2019-11-30 12:30 | NUR ---
Dr. Bowen at bedside to discuss plan of care with patient.
[2019-11-30 12:40] VITALS: BP 156/90
--- NOTE | 2019-11-30 13:56 | NUR ---
Nutrition Followup Notes Wt: 126.9 kg Pt was awake with no relatives at bedside when rounded this morning. Pt is p/s surgery, is NPO since 11/28 per MD order. Will continue to monitor PO status, skin status, pertinent labs and weight trends. Will f/u in 2-3 days. Est Energy needs BW 83 [id number] kcals (23-25 kcal/kgBW), Est Protein needs: 83-91 gms/day (1.0-1.1 gm/kgBW). Will continue to monitor and reassess prn. LABS: GLU 169 H GI: Pt had 5 BM today per RN doc BS: 16 low risk Refer to wound assessment report for full details. PES: Altered nutrition related lab values r.t current chronic medical condition aeb elev BUN hyperglycemia Comments: Will continue to monitor PO status, skin status, pertinent labs and weight trends. Will f/u in 2-3 days. Rec: 1) advance diet as medically feasible. 2) continue current plan of care. 3) refer to CDE on DC
[2019-11-30] MEDS: METOCLOPRAMIDE HCL 5MG/ml INJ 2ml VIAL IV SCH ×2 (15:27→22:10)
[2019-11-30 16:37] VITALS: BP 160/89
--- NOTE | 2019-11-30 17:40 | NUR ---
PT IS AT SBA LEVEL WITH ACTIVITIES AND IS ABLE TO AMBULATE X 250 FEET. D/C FROM P.T. NURSING TO ASSIST PATIENT NEEDED.
--- NOTE | 2019-11-30 19:15 | NUR ---
Opening Shift Note Assumed care of patient, awake and alert. No S/S of distress/SOB. Patient states that he is in severe pain after transferring to the bedside commode. Heart rate elevated into the 150s. Will treat pain with PRN pain medication. Bed is locked in lowest position with call light within reach. Instructed on POC and to call for assist PRN, will continue to monitor for changes Q1hr and PRN.
[2019-11-30 22:00] VITALS: BP 138/93
[2019-12-01] MEDS: HYDROmorphone HCL 2 MG/ML VL IV PRN ×3 (00:50→20:28)
[2019-12-01] MEDS: FAMOTIDINE (10MG/ML) 2ML VL IV SCH ×2 (02:00→13:28)
[2019-12-01] MEDS: IPRATROPIUM BROM 0.5 MG/2.5ML INH SOL NEB PRN ×2 (02:40→09:51)
[2019-12-01] MEDS: LEVALBUTEROL HCL 1.25 MG/3 ML NEB NEB PRN ×2 (02:40→09:51)
[2019-12-01 05:00] VITALS: BP 142/89
[2019-12-01] MEDS: METOCLOPRAMIDE HCL 5MG/ml INJ 2ml VIAL IV SCH ×3 (06:00→21:34)
[2019-12-01] MEDS: ACCU-CHEK COMFORT CURVE STRIP VI SCH ×4 (06:00→18:47)
[2019-12-01] MEDS: InsuLIN REG 1unit/0.01ml Soln (100units/ml) SC SCH ×4 (06:00→18:48)
[2019-12-01 06:46] LABS: Basophils # (auto) 0 10 ^3/uL (0-0.2); Basophils % (auto) 0.2 % (0.0-2.0); Eosinophils # (auto) 0 10 ^3/uL (0-0.8); Hematocrit 45.5 % (41.0-53.0); Hemoglobin 14.9 g/dL (13.5-17.5); Lymphocytes # (auto) 0.4 10 ^3/uL (0.4-5.4); Lymphocytes % (auto) 2.4 % (10.0-50.0); Mean Corpuscular Hemoglobin 29.7 pg (28.0-32.0); Mean Corpuscular Hgb Conc. 32.8 g/dL (32.0-36.0); Mean Corpuscular Volume 90.5 fL (80.0-100.0); Monocytes # (auto) 1.5 10 ^3/uL (0-1.3); Monocytes % (auto) 9.6 % (0.0-12.0); Neutrophils # (auto) 14.2 10 ^3/uL (1.6-8.6); Neutrophils % (auto) 87.8 % (37.0-80.0); Nucleated Red Blood Cells % 0.6 %; Platelet Count (auto) 441 10^3/uL (140-450); Red Blood Cells 5.03 10^6/uL (4.5-5.90); Red Cell Distribution Width 14.8 % (11.8-14.3); White Blood Cell 16.1 10^3/uL (4.4-10.8)
[2019-12-01 07:03] LABS: BUN/Creatinine Ratio 29.2
[2019-12-01 07:10] LABS: INR 1.07 (0.9-1.15); Partial Thromboplastin Time 23.6 sec (23.0-31.2)
[2019-12-01 07:41] LABS: Potassium 2.4 mmol/L (3.5-5.1)
--- NOTE | 2019-12-01 08:20 | NUR ---
Left message with Dr. Bowen regarding critical potassium level and elevated WBC, awaiting return call at this time
[2019-12-01] MEDS: cefTRIAXone 1GM/50ML D5W 50 ML IV SCH (08:49)
[2019-12-01] MEDS ORDERED: MAGNESIUM SULFATE 1GM/100ML 100 ML IV SCH (09:00)
[2019-12-01 09:16] VITALS: BP 129/86
[2019-12-01] MEDS: BUDESONIDE (INHALATION) 0.5 MG/2 ML NEB NEB SCH ×2 (09:51→22:16)
[2019-12-01] MEDS: POTASSIUM CHL 20MEQ/100ML 100 ML IV SCH ×3 (10:13→14:12)
[2019-12-01] MEDS: methylPREDNISolone SOD SUCC 40 MG/ML VL IV SCH ×2 (10:13→21:35)
[2019-12-01] MEDS: ENOXAPARIN SOD 40 MG/0.4 ML SYRINGE SC SCH (10:13)
[2019-12-01] MEDS: CLOPIDOGREL BISULFATE 75 MG TAB PO SCH (10:13)
--- NOTE | 2019-12-01 11:00 | NUR ---
PATIENT ONLY HAS ONE IV ACCESS AND IS A HARD STICK. NEW ORDERS OF POTASSIUM AND MG FOR TODAY WILL BE BEHIND ON THE SCHEDULE THERE IS ONLY ONE LINE ON PATIENT AND MORE ACCESS IS NOT POSSIBLE AT THIS TIME
[2019-12-01 12:35] VITALS: BP 145/84
[2019-12-01 16:51] VITALS: BP 162/86
[2019-12-01] MEDS: MAGNESIUM SULFATE 1GM/100ML 100 ML IV SCH ×3 (17:14→19:00)
[2019-12-01] MEDS: SOD CHL 0.9%/ KCL 20MEQ 1,000 ML IV SCH (18:35)
--- NOTE | 2019-12-01 19:27 | NUR ---
PULLED DILAUDID 1 MG AT 1722 FOR A DIFFERENT PATIENT ON ACCIDENT. TRIED TO FIX WITH A WITNESS AND THE PYXIS WOULD NOT ALLOW RETURN. SPOKE WITH PHARMACIST DENISA AND SHE STATED THAT SHE COULD NOT FIX IT ON HER END OF THE COMPUTER EITHER AND WOULD AGREE TO WASTE WITH ME. THIS PATIENT DID NOT RECEIVE THE DOSE AT 1722 OF DILAUDID 1 MG.
[2019-12-01] MEDS: hydrALAZINE HCL 20 MG/ML VL IV PRN (21:35)
[2019-12-01 22:00] VITALS: BP 160/84
--- NOTE | 2019-12-01 22:21 | NUR ---
Respiratory note: AT BEDSIDE FOR MED NEB TX. PT TOLERATING TX WELL VIA MASK. POX 95-97% HR IN 120S. BS ARE DIMINISHED T/O. WILL CONTINUE TO MONITOR NEEDED.
[2019-12-02] MEDS: InsuLIN REG 1unit/0.01ml Soln (100units/ml) SC SCH ×4 (00:20→17:31)
[2019-12-02] MEDS: HYDROmorphone HCL 2 MG/ML VL IV PRN ×3 (00:25→23:06)
[2019-12-02] MEDS: FAMOTIDINE (10MG/ML) 2ML VL IV SCH ×2 (01:10→11:44)
[2019-12-02] MEDS: LEVALBUTEROL HCL 1.25 MG/3 ML NEB NEB PRN ×3 (02:28→22:18)
[2019-12-02] MEDS: IPRATROPIUM BROM 0.5 MG/2.5ML INH SOL NEB PRN ×2 (02:28→22:18)
--- NOTE | 2019-12-02 02:28 | NUR ---
PAGED TO BEDSIDE PT IS SOB, PT STATES HE HAD AN ACCIDENT ON THE BEDSIDE COMMODE THEN BECAME SOB. BS ARE WHEEZES IN RIGHT UPPER AND MIDDLE LUNG DANIELSON DIMINISHED T/O. POX 90-93% ON 5LPM NC HR IN 130S, PRN TX GIVEN AT THIS TIME. WILL COMMUNICATE FINDINGS TO IVETH VILLAFUERTE.
[2019-12-02] MEDS: SOD CHL 0.9%/ KCL 20MEQ 1,000 ML IV SCH ×3 (02:55→18:37)
[2019-12-02 03:22] VITALS: BP 160/84
--- NOTE | 2019-12-02 04:00 | NUR ---
PAIN ASSESSMENT Patient reports having nonradiating left sided chest tightness which he rates as a 3/10. He states that his pain began after he tried to transfer from the bedside commode to the bed. Patient's vitals: Temp 98.1, BP 136/98, HR 115, RR 20, and SPO2 96%. Patient was given Nitro x 2 which has resolved his pain. Will notify hospitalist.
[2019-12-02 05:00] VITALS: BP 141/77
[2019-12-02] MEDS: ACCU-CHEK COMFORT CURVE STRIP VI SCH ×4 (06:00→17:18)
[2019-12-02] MEDS: METOCLOPRAMIDE HCL 5MG/ml INJ 2ml VIAL IV SCH ×3 (06:00→22:32)
--- NOTE | 2019-12-02 06:23 | NUR ---
HOSPITALIST PAGE BACK Notified the Dr. Delgado about the patient's chest pain. New order for Trop has been received.
[2019-12-02 07:33] LABS: Hematocrit 41.7 % (41.0-53.0); Hemoglobin 13.9 g/dL (13.5-17.5); Mean Corpuscular Hgb Conc. 33.3 g/dL (32.0-36.0); Platelet Count (auto) 382 10^3/uL (140-450); Red Blood Cells 4.63 10^6/uL (4.5-5.90); Red Cell Distribution Width 14.8 % (11.8-14.3); White Blood Cell 13.3 10^3/uL (4.4-10.8)
[2019-12-02 07:49] LABS: Basophils % (manual) 0 (0.0-2.0); Blast Cells 0; Eosinophils % (manual) 0 (0-7); Metamyelocytes % 0; Myelocytes % 0; Promyelocytes % 0; Reactive Lymphocytes 0
--- NOTE | 2019-12-02 07:55 | NUR ---
Opening Note Assumed pt care from NOC RN. Pt is a/ox4 with no s/s of distress or SOB. Pt is currently laying upright in bed with mild generalized discomfort from incision and NG tube. NG tube is present and currently clamped; pt is tolerating the clamping. Discussed POC with pt; pt verbalized understanding. Safety measures maintained with call light within reach, bed in lowest position and side rails up. Will continue to monitor for changes.
[2019-12-02 08:06] LABS: BUN/Creatinine Ratio 27.9; Calcium 8.3 mg/dL (8.5-10.1); Magnesium 3.1 mg/dL (1.6-2.6)
[2019-12-02 08:13] LABS: Band Neutrophils % (manual) 1; Lymphocytes % (manual) 3 (10.0-50.0); Monocytes % (manual) 2 (0-12)
[2019-12-02 08:16] LABS: Potassium 2.6 mmol/L (3.5-5.1)
--- NOTE | 2019-12-02 08:18 | NUR ---
Critical Lab- Potassium Potassium of 2.[address] Bowen with lab value. Awaiting call back. Will continue to monitor. Addendum: 12/02/19 at 0826 by TANYA CRUZ RN RN called back. Orders given, read back and verified. Will implement and continue to monitor.
[2019-12-02] MEDS: cefTRIAXone 1GM/50ML D5W 50 ML IV SCH (08:37)
[2019-12-02] MEDS: ENOXAPARIN SOD 40 MG/0.4 ML SYRINGE SC SCH (08:38)
[2019-12-02] MEDS: POTASSIUM CHL 20MEQ/100ML 100 ML IV SCH ×3 (08:38→12:45)
[2019-12-02] MEDS: CLOPIDOGREL BISULFATE 75 MG TAB PO SCH (08:38)
[2019-12-02] MEDS: methylPREDNISolone SOD SUCC 40 MG/ML VL IV SCH (08:38)
[2019-12-02 09:00] VITALS: BP 155/95
[2019-12-02] MEDS: hydrALAZINE HCL 20 MG/ML VL IV PRN (09:08)
--- NOTE | 2019-12-02 10:13 | NUR ---
Advancement of Diet Pt tolerated the advancement of diet to clear liquids. Will continue to monitor. Addendum: 12/02/19 at 1149 by TANYA CRUZ RN RN Pt is c/o increased nausea at this time. Medicated appropriately. Will withhold lunch at this time and continue to monitor.
--- NOTE | 2019-12-02 11:11 | NUR ---
Nutrition Followup Notes Wt: 126.9 kg Pt`s s/p surgery, is NPO since 11/28 per MD order. per RN pt will advance the diet today to clear liq. Est Energy needs BW 83 [id number] kcals (23-25 kcal/kgBW), Est Protein needs: 83-91 gms/day (1.0-1.1 gm/kgBW). Will continue to monitor and reassess prn. LABS: BUN 24 H, CA 8.3 L, GLU 163 H GI: Pt had 3 BM today per RN doc BS: 22 low risk Refer to wound assessment report for full details. PES: Altered nutrition related lab values r.t current chronic medical condition aeb elev BUN hyperglycemia Comments: Will continue to monitor NPO status, skin status, pertinent labs and weight trends. Will f/u in 2-3 days. Rec: 1) advance diet as medically feasible. 2) continue current plan of care. 3) refer to CDE on DC
[2019-12-02] MEDS: PROMETHAZINE HCL 25 MG/ML 1ML IV PRN (11:28)
[2019-12-02 13:00] VITALS: BP 144/95
--- NOTE | 2019-12-02 13:05 | NUR ---
Dr Bowen at Bedside MD to see pt. requests that we d/c NG tube and assess pt. further requests to monitor pt's potassium values. Per MD, if repeat labs are below 3.5, to give 40meq via IV. Will implement and continue to monitor.
--- NOTE | 2019-12-02 13:21 | NUR ---
D/C NG Tube NG tube d/c'ed. Pt tolerated well. Will continue to monitor.
[2019-12-02] MEDS: BUDESONIDE (INHALATION) 0.5 MG/2 ML NEB NEB SCH ×2 (14:52→22:18)
[2019-12-02 17:00] VITALS: BP 135/79
--- NOTE | 2019-12-02 19:30 | NUR ---
Opening Shift Note Assumed care of patient, awake and alert. Patient on 4 LPM nasal cannula, oxygen saturation of 95%, no complains of pain. Instructed on POC and to call for assist PRN, will continue to monitor for changes Q1hr and PRN.
[2019-12-02 22:00] VITALS: BP 142/85
[2019-12-03] MEDS: ACCU-CHEK COMFORT CURVE STRIP VI SCH ×4 (01:24→18:00)
[2019-12-03] MEDS: FAMOTIDINE (10MG/ML) 2ML VL IV SCH ×2 (01:24→13:19)
[2019-12-03 05:00] VITALS: BP 126/94
[2019-12-03] MEDS: METOCLOPRAMIDE HCL 5MG/ml INJ 2ml VIAL IV SCH ×3 (05:35→23:45)
[2019-12-03] MEDS: SOD CHL 0.9%/ KCL 20MEQ 1,000 ML IV SCH ×3 (05:36→20:35)
[2019-12-03] MEDS: InsuLIN REG 1unit/0.01ml Soln (100units/ml) SC SCH ×4 (05:42→18:00)
[2019-12-03] MEDS: BUDESONIDE (INHALATION) 0.5 MG/2 ML NEB NEB SCH ×2 (06:59→22:38)
[2019-12-03] MEDS: LEVALBUTEROL HCL 1.25 MG/3 ML NEB NEB PRN ×2 (06:59→22:39)
[2019-12-03] MEDS: IPRATROPIUM BROM 0.5 MG/2.5ML INH SOL NEB PRN ×2 (06:59→22:38)
[2019-12-03 07:07] LABS: BUN/Creatinine Ratio 17.6; Calcium 8.2 mg/dL (8.5-10.1)
--- NOTE | 2019-12-03 07:30 | NUR ---
Patient has no complains at this time. All needs attended to. Report given to oncoming RN.
--- NOTE | 2019-12-03 07:30 | NUR ---
Opening Shift Note Assuming care of patient at this time. Patient is awake and alert. Patient denies pain. Patient shows no signs or symptoms of distress or shortness of breath. Bed locked and lowered with side rails up x2. Instructed patient on the plan of care for today and to call for assistance as needed. Call light within reach.
[2019-12-03 07:47] LABS: Potassium 2.6 mmol/L (3.5-5.1)
[2019-12-03 09:00] VITALS: BP 144/74
[2019-12-03] MEDS: cefTRIAXone 1GM/50ML D5W 50 ML IV SCH (10:35)
[2019-12-03] MEDS: CLOPIDOGREL BISULFATE 75 MG TAB PO SCH (10:38)
[2019-12-03] MEDS: POTASSIUM CHL 20MEQ/100ML 100 ML IV SCH ×3 (10:38→15:40)
[2019-12-03] MEDS: ENOXAPARIN SOD 40 MG/0.4 ML SYRINGE SC SCH (10:39)
[2019-12-03 13:00] VITALS: BP 121/67
[2019-12-03 17:00] VITALS: BP 123/67
--- NOTE | 2019-12-03 19:29 | NUR ---
Closing Shift Note Patient resting in bed. No distress noted. Report given. Will endorse care to the nightman RN.
--- NOTE | 2019-12-03 19:30 | NUR ---
Opening Shift Note Assumed care of patient, awake and alert. A&Ox4. No S/S of distress/SOB or pain. Abdominal binder in place. Incision dry and intact. Safety measures maintained by keeping the bed locked in lowest position, 2 side rails up, personal items and call light within reach. Instructed on POC and to call for assist PRN, will continue to monitor for changes Q1hr and PRN.
[2019-12-03 23:52] VITALS: BP 144/67
[2019-12-04] MEDS: ACCU-CHEK COMFORT CURVE STRIP VI SCH ×5 (00:26→23:28)
[2019-12-04] MEDS: InsuLIN REG 1unit/0.01ml Soln (100units/ml) SC SCH ×5 (00:26→23:27)
[2019-12-04] MEDS: HYDROmorphone HCL 2 MG/ML VL IV PRN (01:07)
[2019-12-04] MEDS: FAMOTIDINE (10MG/ML) 2ML VL IV SCH ×2 (01:07→12:29)
[2019-12-04] MEDS: SOD CHL 0.9%/ KCL 20MEQ 1,000 ML IV SCH (05:29)
[2019-12-04 05:37] VITALS: BP 133/85
[2019-12-04] MEDS: METOCLOPRAMIDE HCL 5MG/ml INJ 2ml VIAL IV SCH (05:49)
--- NOTE | 2019-12-04 07:30 | NUR ---
Opening shift note. Assumed care. Patient complaining of pain to IV site. Per patient arm has been swollen since last night. IV noted to be occluded and infiltrated. Site hot to touch. IV removed at this time. Patient updated on POC and to call for assistance as needed. All questions and concerns addressed. Will continue care.
[2019-12-04 09:00] VITALS: BP 141/76
[2019-12-04] MEDS: cefTRIAXone 1GM/50ML D5W 50 ML IV SCH ×2 (09:56→10:18)
[2019-12-04] MEDS: ENOXAPARIN SOD 40 MG/0.4 ML SYRINGE SC SCH (09:57)
[2019-12-04] MEDS: CLOPIDOGREL BISULFATE 75 MG TAB PO SCH (09:57)
--- NOTE | 2019-12-04 10:15 | NUR ---
Patient refusing IV Patient refusing new IV administration. Patient informed of risks of not having IV line in place. Patient verbalized understanding. MD has been notified.
[2019-12-04] MEDS: BUDESONIDE (INHALATION) 0.5 MG/2 ML NEB NEB SCH ×2 (11:37→19:38)
--- NOTE | 2019-12-04 12:40 | NUR ---
MD paged MD paged regarding no BMP lab draw this morning and patient's K+ level was 2.6 on 12/03/19. New orders received over phone and verified for Potassium and Magnesium draw lab. Will implement orders at this time and notify MD of any abnormalities when resulted.
[2019-12-04 13:00] VITALS: BP 140/76
[2019-12-04 14:29] LABS: Magnesium 2.4 mg/dL (1.6-2.6)
[2019-12-04 15:33] LABS: Potassium 2.6 mmol/L (3.5-5.1)
--- NOTE | 2019-12-04 15:37 | NUR ---
New orders Critical potassium of 2.6 reported. aware new orders received to replace potassium. Check EMAR for order.
[2019-12-04] MEDS ORDERED: POTASSIUM CHL 20 Meq TABLET PO ONE (15:45)
[2019-12-04 17:00] VITALS: BP 119/72
--- NOTE | 2019-12-04 19:30 | NUR ---
Opening Shift Note Assumed care of patient, awake and alert. A&Ox4. Patient laying supine in bed. No S/S of distress/SOB or pain. Safety measures maintained by keeping the bed locked in lowest position, 2 side rails up, personal items and call light within reach. Instructed on POC and to call for assist PRN, will continue to monitor for changes Q1hr and PRN.
[2019-12-04] MEDS: LEVALBUTEROL HCL 1.25 MG/3 ML NEB NEB PRN (19:38)
[2019-12-04] MEDS: IPRATROPIUM BROM 0.5 MG/2.5ML INH SOL NEB PRN (19:38)
--- NOTE | 2019-12-04 19:42 | NUR ---
RT NOTE PT WAS SEEN BY RT FOR HHN TX. PT TOLERATES WELL VIA MASK. NO ADVERSE REACTION NOTED. CONT ORDERED Addendum: 12/04/19 at 1943 by Hannah Marr RT Amended: Links added.
[2019-12-04 22:19] VITALS: BP 137/75
[2019-12-05 01:01] VITALS: BP 137/75
[2019-12-05 05:20] VITALS: BP 123/76
[2019-12-05] MEDS: InsuLIN REG 1unit/0.01ml Soln (100units/ml) SC SCH ×2 (05:37→12:00)
[2019-12-05] MEDS: ACCU-CHEK COMFORT CURVE STRIP VI SCH ×2 (05:37→12:00)
--- NOTE | 2019-12-05 08:08 | NUR ---
received critical potassium level of 2.6 from lab, called Dr Bowen to report, left message on answering service, patient is also pending a discharge, will wait for call back before following through with DC.
[2019-12-05] MEDS ORDERED: POTASSIUM CHL 20 Meq TABLET PO ONE ×2 (08:15→08:17)
[2019-12-05] MEDS ORDERED: POTASSIUM CHLORIDE 20 MEQ, LIDOCAINE 1% (LOCAL ANESTH.) 2 ML in SODIUM CHL 0.9% 100 ML IV ONE (08:15)
[2019-12-05 09:00] VITALS: BP 149/77
[2019-12-05] MEDS: CLOPIDOGREL BISULFATE 75 MG TAB PO SCH (09:30)
[2019-12-05] MEDS: ENOXAPARIN SOD 40 MG/0.4 ML SYRINGE SC SCH (09:32)
[2019-12-05] MEDS ORDERED: POTA10TA51 PO (09:42)
[2019-12-05 10:10] VITALS: BP 149/77
--- NOTE | 2019-12-05 12:45 | NUR ---
patient tele box sent to monitor techs. Patient taken down to private vehicle. alert and oriented at time of DC. patient had no questions regarding DC paperwork, all information provided to patient.
== END 2019-12-05 12:43 | disposition home or self-care (01) | DRG 227 ==
LOC: EDBD 05:41 → ER 05:41 → TELE 05:42 → TELE-CENTR 17:50
PROVIDERS: ADMIT Internal Medicine; ATTEND Hospitalist
PROC: 0WUF0JZ Supplement Abdominal Wall with Synthetic Substitute, Open Approach (ICD-10-PCS; principal; 2019-11-25 08:25)
PROC: 0D9670Z Drainage of Stomach with Drainage Device, Via Natural or Artificial Opening (ICD-10-PCS; 2019-11-28)
DX: K43.6 Other and unspecified ventral hernia with obstruction, without gangrene (principal); J96.01 Acute respiratory failure with hypoxia; K80.20 Calculus of gallbladder without cholecystitis without obstruction; I10 Essential (primary) hypertension; E86.0 Dehydration; E11.9 Type 2 diabetes mellitus without complications; I25.10 Atherosclerotic heart disease of native coronary artery without angina pectoris; E83.52 Hypercalcemia; R00.0 Tachycardia, unspecified; J98.11 Atelectasis; D35.01 Benign neoplasm of right adrenal gland; R82.994 Hypercalciuria; D72.829 Elevated white blood cell count, unspecified; I25.2 Old myocardial infarction; K56.7 Ileus, unspecified; Z95.5 Presence of coronary angioplasty implant and graft; Z68.35 Body mass index [BMI] 35.0-35.9, adult; E66.01 Morbid (severe) obesity due to excess calories
CPT/HCPCS: 36415; 71045; 74018; 74176; 74250; 80048; 80053; 81001; 82150; 82962; 83036; 83605; 83690; 83735; 84132; 84484; 85007; 85025; 85027; 85610; 85730; 86850; 86900; 86901; 87040; 87081; 87493; 93005; 94640; 97110; 97116; 97530; G0378; J0330; J0690; J0696; J1815; J1956; J2001; J2250; J2405; J2704; J3480; J3490

== ENCOUNTER 2021-05-20 09:19 | Inpatient (IN) | payer MEDICAID ==
[~2021-05-20] VITALS: Ht 175.3 cm; Wt 104.4 kg
[~2021-05-20 09:19] MED LIST changes: +DOCU1CAP22 PO; -DOCU1CAP31 PO; +FLUT1SPR5 EACHNOSTRI; -LISI-648 PO; +LISI-716 PO; +POTA10TA51 PO; +TICA90TA PO
[2021-05-20] MEDS ORDERED: SODIUM CHLORIDE 0.9% 500 ML IV ONE ×2 (10:00→12:15)
[2021-05-20] MEDS ORDERED: ACETAMINOPHEN 500 MG TAB PO ONE (10:00)
[2021-05-20 10:20] LABS: Basophils # (auto) 0 10 ^3/uL (0-0.2); Basophils % (auto) 0.2 % (0.0-2.0); Eosinophils # (auto) 0 10 ^3/uL (0-0.8); Monocytes # (auto) 0.3 10 ^3/uL (0-1.3); Red Cell Distribution Width 13.2 % (11.8-14.3)
[2021-05-20 10:22] LABS: Hematocrit 52.4 % (41.0-53.0); Hemoglobin 17.9 g/dL (13.5-17.5); Lymphocytes # (auto) 0.4 10 ^3/uL (0.4-5.4); Lymphocytes % (auto) 3.3 % (10.0-50.0); Mean Corpuscular Hemoglobin 29.9 pg (28.0-32.0); Mean Corpuscular Hgb Conc. 34.1 g/dL (32.0-36.0); Mean Corpuscular Volume 87.5 fL (80.0-100.0); Neutrophils # (auto) 10.1 10 ^3/uL (1.6-8.6); Neutrophils % (auto) 93.5 % (37.0-80.0); Red Blood Cells 5.99 10^6/uL (4.5-5.90); White Blood Cell 10.8 10^3/uL (4.4-10.8)
[2021-05-20 10:59] LABS: Lactic Acid w/Reflex 3.6 mmol/L (0.4-2.0)
[2021-05-20 11:24] LABS: Calcium 10.7 mg/dL (8.5-10.1); Potassium 3.8 mmol/L (3.5-5.1)
[2021-05-20 11:28] LABS: Bilirubin, Total 0.8 mg/dL (0.2-1.0); Total Protein 8.5 g/dL (6.4-8.2)
[2021-05-20] MEDS ORDERED: DexAMETHasone SOD PHOS 10MG/1ML VIAL INJ IV ONE (11:45)
[2021-05-20] MEDS ORDERED: PANTOPRAZOLE 40 MG/10 ML VIAL INJ IV ONE (11:45)
[2021-05-20 12:02] LABS: Albumin 2.9 g/dL (3.4-5.0)
[2021-05-20] MEDS ORDERED: cefTRIAXone 1GM/50ML D5W 50 ML IV ONE (12:15)
[2021-05-20] MEDS ORDERED: AZITHROMYCIN 500MG/ 250ML 250 ML IV ONE (12:15)
[2021-05-20] MEDS ORDERED: ALUM & MAG HYDROX-SIMETH LIQ(MAALOX) 30 ML PO ONE (12:15)
[2021-05-20] MEDS ORDERED: MORPHINE SULFATE INJECTION 2 MG/ML SYRG IV PRN (13:45)
[2021-05-20] MEDS ORDERED: DOCUSATE SOD 100 MG CAP PO PRN (13:45)
[2021-05-20] MEDS ORDERED: NITROGLYCERIN 0.4 MG SL TAB SL PRN (13:45)
[2021-05-20] MEDS ORDERED: ACETAMINOPHEN 325 MG TAB PO PRN (13:45)
[2021-05-20] MEDS ORDERED: REMDESIVIR PER PHARMACY 0 ML IV SCH (14:15)
[2021-05-20] MEDS ORDERED: REMDESIVIR 200 MG in NS 210ml LOADING DOSE ADULT IV ONE (15:00)
[2021-05-20 21:12] LABS: Urine Bacteria NONE SEEN /hpf (None Seen); Urine Blood TRACE /uL (Negative); Urine Mucus MODERATE (None Seen); Urine Specific Gravity 1.048 (1.001-1.035); Urine WBC 3 /hpf (0 - 3)
[2021-05-20] MEDS: ALBUTEROL SULF HFA 90MCG INH 200DOSE IN SCH (23:15)
[2021-05-20 23:25] VITALS: BP 142/91
[2021-05-21] VITALS (35 sets, daily range): BP systolic 81–120; BP diastolic 57–71
[2021-05-21] MEDS ORDERED: ROCURONIUM 10MG/ML 10ML VIAL IV ONE (02:45)
[2021-05-21] MEDS ORDERED: ETOMIDATE (2MG/ML) 20ML VIAL IV ONE (02:45)
[2021-05-21] MEDS: PROPOFOL 100 ML IV SCH ×4 (02:50→23:38)
[2021-05-21] MEDS ORDERED: MAGNESIUM SULFATE 1GM/100ML 200 ML IV ONE (02:59)
[2021-05-21] MEDS ORDERED: dilTIAZem 25 MG/5 ML VIAL IV ONE ×3 (03:00→03:30)
[2021-05-21] MEDS ORDERED: AMIODARONE HCL (50 MG/ ML) 3 ML VIAL IV ONE ×2 (03:00→03:22)
[2021-05-21] MEDS ORDERED: ADENOSINE 6 MG/2 ML INJ IV ONE ×4 (03:06→03:15)
[2021-05-21] MEDS ORDERED: AMIODARONE HCL 150 MG in D5W 5% 100 ML IV ONE ×2 (03:15→03:30)
[2021-05-21] MEDS ORDERED: MAGNESIUM SULFATE 1GM/100ML 100 ML IV ONE ×2 (03:15)
[2021-05-21] MEDS ORDERED: LABETALOL HCL 5 MG/ML ML 20ML VIAL IV ONE (03:23)
[2021-05-21] MEDS ORDERED: MIDAZOLAM HCL 2MG/2ML 2ml VIAL (1mg/ml) ONE ×2 (03:28→03:31)
[2021-05-21] MEDS ORDERED: LABETALOL HCL 5 MG/ML 4ML SYRINGE IV ONE (03:30)
[2021-05-21] MEDS ORDERED: MIDAZOLAM HCL 5 MG/ML-1ML VIAL IV ONE (03:45)
[2021-05-21] MEDS: MIDAZOLAM DRIP 50 mg/50mL 50 ML IV SCH (06:06)
[2021-05-21 07:01] LABS: Basophils # (auto) 0 10 ^3/uL (0-0.2); Basophils % (auto) 0.2 % (0.0-2.0); Eosinophils # (auto) 0 10 ^3/uL (0-0.8); Eosinophils % (auto) 0.1 % (0.0-7.0); Hematocrit 45.5 % (41.0-53.0); Hemoglobin 15.4 g/dL (13.5-17.5); Lymphocytes # (auto) 0.2 10 ^3/uL (0.4-5.4); Lymphocytes % (auto) 1.8 % (10.0-50.0); Mean Corpuscular Hemoglobin 30.3 pg (28.0-32.0); Mean Corpuscular Hgb Conc. 33.8 g/dL (32.0-36.0); Mean Corpuscular Volume 89.6 fL (80.0-100.0); Monocytes # (auto) 0.6 10 ^3/uL (0-1.3); Monocytes % (auto) 4.9 % (0.0-12.0); Neutrophils # (auto) 11.2 10 ^3/uL (1.6-8.6); Red Blood Cells 5.08 10^6/uL (4.5-5.90); Red Cell Distribution Width 13.7 % (11.8-14.3)
[2021-05-21 07:17] LABS: Potassium 3.8 mmol/L (3.5-5.1)
[2021-05-21 07:27] LABS: BUN/Creatinine Ratio 28.9; Bilirubin, Total 0.6 mg/dL (0.2-1.0); Calcium 9.1 mg/dL (8.5-10.1); Total Protein 6.7 g/dL (6.4-8.2)
[2021-05-21 07:59] LABS: Albumin 2.3 g/dL (3.4-5.0)
[2021-05-21] MEDS ORDERED: DOCUSATE ORAL LIQUID 100 MG/10 ML UD GT PRN (08:45)
[2021-05-21] MEDS ORDERED: DEXTROSE (50%) 50ML SYRG IV PRN (09:45)
[2021-05-21] MEDS: ALBUTEROL SULF HFA 90MCG INH 200DOSE IN SCH (10:00)
[2021-05-21] MEDS: InsuLIN REG 1unit/0.01ml Soln (100units/ml) SC SCH ×2 (11:19→17:47)
[2021-05-21] MEDS: PANTOPRAZOLE 40 MG/10 ML VIAL INJ IV SCH (12:00)
[2021-05-21] MEDS: ACCU-CHEK COMFORT CURVE STRIP VI SCH ×2 (12:00→17:47)
[2021-05-21] MEDS: ZINC SULFATE 220mg CAP or TAB GT SCH (13:43)
[2021-05-21] MEDS: ASCORBIC ACID 500 MG TAB GT SCH (13:43)
[2021-05-21] MEDS: DexAMETHasone SOD PHOS 10MG/1ML VIAL INJ IV SCH (13:44)
[2021-05-21] MEDS: CHOLECALCIFEROL (VITD3) 2,000 UNIT CAP/TAB GT SCH (13:44)
[2021-05-21 14:49] LABS: INR 1.1 (0.9-1.15)
[2021-05-21] MEDS ORDERED: REMDESIVIR 100mg 100 MG in SODIUM CHL 0.9% 230 ML IV SCH (15:00)
[2021-05-21] MEDS ORDERED: NOREPINEPHRINE 8 MG/250ML KIT 250 ML IV ONE (15:22)
[2021-05-21] MEDS: NOREPINEPHRINE 8 MG/250ML KIT 250 ML IV SCH (17:30)
[2021-05-21] MEDS ORDERED: ASPI81CH49 PO (17:37)
[2021-05-21] MEDS: ENOXAPARIN SOD 40 MG/0.4 ML SYRINGE SC SCH (18:23)
[2021-05-21] MEDS ORDERED: LIDOCAINE 1% (LOCAL ANESTH.) PF 5ml SDV ID ONE (18:45)
[2021-05-21] MEDS: ALBUTEROL SULF 2.5 MG/0.5ML(0.5%) NEB SOLN NEB PRN (19:09)
[2021-05-21] MEDS: SODIUM CHLOR 0.9% PF (SALINE LOCK) 10ML VIAL/SYR IV SCH (22:00)
[2021-05-21] MEDS: ATORVASTATIN 20 MG TAB PO SCH (22:00)
[2021-05-22] VITALS (55 sets, daily range): BP systolic 83–107; BP diastolic 50–76
[2021-05-22] MEDS: InsuLIN REG 1unit/0.01ml Soln (100units/ml) SC SCH ×4 (00:20→18:08)
[2021-05-22] MEDS: ACCU-CHEK COMFORT CURVE STRIP VI SCH ×4 (00:21→16:44)
[2021-05-22] MEDS: PROPOFOL 100 ML IV SCH ×4 (02:20→23:07)
[2021-05-22 04:57] LABS: Basophils # (auto) 0 10 ^3/uL (0-0.2); Basophils % (auto) 0.2 % (0.0-2.0); Eosinophils # (auto) 0 10 ^3/uL (0-0.8); Hematocrit 42.9 % (41.0-53.0); Hemoglobin 14.4 g/dL (13.5-17.5); Lymphocytes # (auto) 0.2 10 ^3/uL (0.4-5.4); Lymphocytes % (auto) 1.8 % (10.0-50.0); Mean Corpuscular Hemoglobin 29.7 pg (28.0-32.0); Mean Corpuscular Hgb Conc. 33.6 g/dL (32.0-36.0); Mean Corpuscular Volume 88.4 fL (80.0-100.0); Monocytes # (auto) 0.3 10 ^3/uL (0-1.3); Monocytes % (auto) 3.1 % (0.0-12.0); Neutrophils # (auto) 9.5 10 ^3/uL (1.6-8.6); Neutrophils % (auto) 94.9 % (37.0-80.0); Nucleated Red Blood Cells % 0.1 %; Red Blood Cells 4.86 10^6/uL (4.5-5.90); Red Cell Distribution Width 13.4 % (11.8-14.3)
[2021-05-22 05:29] LABS: Calcium 9.3 mg/dL (8.5-10.1); Potassium 4.2 mmol/L (3.5-5.1)
[2021-05-22 05:30] LABS: BUN/Creatinine Ratio 36.7
[2021-05-22 05:33] LABS: Bilirubin, Total 0.4 mg/dL (0.2-1.0); Total Protein 6.1 g/dL (6.4-8.2)
[2021-05-22] MEDS: MIDAZOLAM DRIP 50 mg/50mL 50 ML IV SCH ×2 (05:45→14:44)
[2021-05-22] MEDS: ASCORBIC ACID 500 MG TAB GT SCH (07:32)
[2021-05-22] MEDS: ZINC SULFATE 220mg CAP or TAB GT SCH (07:32)
[2021-05-22] MEDS: ASPirin 81 mg TAB PO SCH (07:33)
[2021-05-22] MEDS: SODIUM CHLOR 0.9% PF (SALINE LOCK) 10ML VIAL/SYR IV SCH ×2 (07:33→22:26)
[2021-05-22] MEDS: PANTOPRAZOLE 40 MG/10 ML VIAL INJ IV SCH (07:33)
[2021-05-22] MEDS: ENOXAPARIN SOD 40 MG/0.4 ML SYRINGE SC SCH (07:33)
[2021-05-22] MEDS: DexAMETHasone SOD PHOS 10MG/1ML VIAL INJ IV SCH (07:35)
[2021-05-22] MEDS: CHOLECALCIFEROL (VITD3) 2,000 UNIT CAP/TAB GT SCH (10:00)
[2021-05-22] MEDS: NOREPINEPHRINE 8 MG/250ML KIT 250 ML IV SCH (12:31)
[2021-05-22] MEDS ORDERED: Glucerna 1.2 Cal 1Liter BOTTLE GT SCH (13:00)
[2021-05-22] MEDS: SODIUM CHLORIDE 0.9% 1,000 ML IV SCH (14:43)
[2021-05-22] MEDS: ATORVASTATIN 20 MG TAB PO SCH (22:26)
[2021-05-23] VITALS (37 sets, daily range): BP systolic 89–132; BP diastolic 57–75
[2021-05-23] MEDS: ACCU-CHEK COMFORT CURVE STRIP VI SCH ×4 (00:02→17:03)
[2021-05-23] MEDS: PROPOFOL 100 ML IV SCH ×6 (02:40→21:59)
[2021-05-23] MEDS: InsuLIN REG 1unit/0.01ml Soln (100units/ml) SC SCH ×4 (06:00→17:16)
[2021-05-23] MEDS: MIDAZOLAM DRIP 50 mg/50mL 50 ML IV SCH ×2 (08:32→17:00)
[2021-05-23] MEDS: DexAMETHasone SOD PHOS 10MG/1ML VIAL INJ IV SCH (10:00)
[2021-05-23] MEDS: ASPirin 81 mg TAB PO SCH (10:00)
[2021-05-23] MEDS: SODIUM CHLOR 0.9% PF (SALINE LOCK) 10ML VIAL/SYR IV SCH ×2 (10:00→21:51)
[2021-05-23] MEDS: ZINC SULFATE 220mg CAP or TAB GT SCH (10:00)
[2021-05-23] MEDS: ASCORBIC ACID 500 MG TAB GT SCH (10:00)
[2021-05-23] MEDS: CHOLECALCIFEROL (VITD3) 2,000 UNIT CAP/TAB GT SCH (10:00)
[2021-05-23] MEDS: ENOXAPARIN SOD 40 MG/0.4 ML SYRINGE SC SCH (10:00)
[2021-05-23] MEDS: PANTOPRAZOLE 40 MG/10 ML VIAL INJ IV SCH (10:00)
[2021-05-23] MEDS: SODIUM CHLORIDE 0.9% 1,000 ML IV SCH (12:00)
[2021-05-23] MEDS: NOREPINEPHRINE 8 MG/250ML KIT 250 ML IV SCH (12:00)
[2021-05-23] MEDS: ATORVASTATIN 20 MG TAB PO SCH (21:51)
[2021-05-24] VITALS (22 sets, daily range): BP systolic 92–122; BP diastolic 60–73
[2021-05-24] MEDS: SODIUM CHLORIDE 0.9% 1,000 ML IV SCH (01:36)
[2021-05-24] MEDS: MIDAZOLAM DRIP 50 mg/50mL 50 ML IV SCH ×5 (05:00→22:28)
[2021-05-24] MEDS: PROPOFOL 100 ML IV SCH ×7 (05:30→22:28)
[2021-05-24] MEDS: InsuLIN REG 1unit/0.01ml Soln (100units/ml) SC SCH ×5 (05:47→23:22)
[2021-05-24] MEDS: ACCU-CHEK COMFORT CURVE STRIP VI SCH ×5 (06:16→23:21)
[2021-05-24] MEDS: ASCORBIC ACID 500 MG TAB GT SCH (10:00)
[2021-05-24] MEDS: SODIUM CHLOR 0.9% PF (SALINE LOCK) 10ML VIAL/SYR IV SCH ×2 (10:23→22:27)
[2021-05-24] MEDS: ASPirin 81 mg TAB PO SCH (10:23)
[2021-05-24] MEDS: PANTOPRAZOLE 40 MG/10 ML VIAL INJ IV SCH (10:23)
[2021-05-24] MEDS: ZINC SULFATE 220mg CAP or TAB GT SCH (10:23)
[2021-05-24] MEDS: DexAMETHasone SOD PHOS 10MG/1ML VIAL INJ IV SCH (10:23)
[2021-05-24] MEDS: ENOXAPARIN SOD 40 MG/0.4 ML SYRINGE SC SCH (10:23)
[2021-05-24] MEDS: CHOLECALCIFEROL (VITD3) 2,000 UNIT CAP/TAB GT SCH (10:23)
[2021-05-24] MEDS: NOREPINEPHRINE 8 MG/250ML KIT 250 ML IV SCH (17:30)
[2021-05-24] MEDS: ATORVASTATIN 20 MG TAB PO SCH (22:27)
[2021-05-25] VITALS (29 sets, daily range): BP systolic 92–141; BP diastolic 58–97
[2021-05-25] MEDS: PROPOFOL 100 ML IV SCH ×4 (03:15→21:29)
[2021-05-25] MEDS: MIDAZOLAM DRIP 50 mg/50mL 50 ML IV SCH ×2 (04:46→10:00)
[2021-05-25] MEDS: ACCU-CHEK COMFORT CURVE STRIP VI SCH ×4 (05:39→23:44)
[2021-05-25] MEDS: InsuLIN REG 1unit/0.01ml Soln (100units/ml) SC SCH ×4 (05:44→23:45)
[2021-05-25] MEDS: PANTOPRAZOLE 40 MG/10 ML VIAL INJ IV SCH (10:00)
[2021-05-25] MEDS: DexAMETHasone SOD PHOS 10MG/1ML VIAL INJ IV SCH (10:00)
[2021-05-25] MEDS: CHOLECALCIFEROL (VITD3) 2,000 UNIT CAP/TAB GT SCH (10:00)
[2021-05-25] MEDS: ENOXAPARIN SOD 40 MG/0.4 ML SYRINGE SC SCH (10:00)
[2021-05-25] MEDS: ASPirin 81 mg TAB PO SCH (10:00)
[2021-05-25] MEDS: ASCORBIC ACID 500 MG TAB GT SCH (10:00)
[2021-05-25] MEDS: SODIUM CHLOR 0.9% PF (SALINE LOCK) 10ML VIAL/SYR IV SCH ×2 (10:00→21:42)
[2021-05-25] MEDS: ZINC SULFATE 220mg CAP or TAB GT SCH (10:00)
[2021-05-25] MEDS: SODIUM CHLORIDE 0.9% 1,000 ML IV SCH (13:00)
[2021-05-25] MEDS: NOREPINEPHRINE 8 MG/250ML KIT 250 ML IV SCH (17:30)
[2021-05-25] MEDS: ATORVASTATIN 20 MG TAB PO SCH (21:42)
[2021-05-25] MEDS: INSULIN LANTUS (GLARGINE) 1 /0.01ml (100units/ml) SC SCH (21:43)
[2021-05-26] VITALS (29 sets, daily range): BP systolic 83–135; BP diastolic 55–84
[2021-05-26] MEDS: PROPOFOL 100 ML IV SCH ×5 (02:30→20:41)
[2021-05-26] MEDS: MIDAZOLAM DRIP 50 mg/50mL 50 ML IV SCH ×4 (02:31→20:45)
[2021-05-26 04:31] LABS: Basophils # (auto) 0.1 10 ^3/uL (0-0.2); Basophils % (auto) 0.5 % (0.0-2.0); Eosinophils # (auto) 0.1 10 ^3/uL (0-0.8); Eosinophils % (auto) 1.1 % (0.0-7.0); Hematocrit 39.3 % (41.0-53.0); Hemoglobin 13.1 g/dL (13.5-17.5); Lymphocytes # (auto) 0.5 10 ^3/uL (0.4-5.4); Lymphocytes % (auto) 4.7 % (10.0-50.0); Mean Corpuscular Hemoglobin 30.7 pg (28.0-32.0); Mean Corpuscular Hgb Conc. 33.4 g/dL (32.0-36.0); Monocytes # (auto) 0.5 10 ^3/uL (0-1.3); Monocytes % (auto) 4.8 % (0.0-12.0); Neutrophils # (auto) 9.6 10 ^3/uL (1.6-8.6); Neutrophils % (auto) 88.9 % (37.0-80.0); Nucleated Red Blood Cells % 0.1 %; Red Blood Cells 4.27 10^6/uL (4.5-5.90); Red Cell Distribution Width 13.7 % (11.8-14.3); White Blood Cell 10.8 10^3/uL (4.4-10.8)
[2021-05-26 04:51] LABS: Albumin 1.9 g/dL (3.4-5.0); Calcium 8.7 mg/dL (8.5-10.1); Potassium 4.9 mmol/L (3.5-5.1)
[2021-05-26 04:54] LABS: BUN/Creatinine Ratio 30.6
[2021-05-26 04:56] LABS: Bilirubin, Total 0.4 mg/dL (0.2-1.0); Total Protein 5.3 g/dL (6.4-8.2)
[2021-05-26] MEDS: ACCU-CHEK COMFORT CURVE STRIP VI SCH ×3 (06:00→18:01)
[2021-05-26] MEDS: InsuLIN REG 1unit/0.01ml Soln (100units/ml) SC SCH ×3 (06:38→18:01)
[2021-05-26] MEDS: INSULIN LANTUS (GLARGINE) 1 /0.01ml (100units/ml) SC SCH ×2 (07:00→22:38)
[2021-05-26] MEDS: SODIUM CHLORIDE 0.9% 1,000 ML IV SCH (10:22)
[2021-05-26] MEDS: CHOLECALCIFEROL (VITD3) 2,000 UNIT CAP/TAB GT SCH (10:24)
[2021-05-26] MEDS: ENOXAPARIN SOD 40 MG/0.4 ML SYRINGE SC SCH (10:24)
[2021-05-26] MEDS: ZINC SULFATE 220mg CAP or TAB GT SCH (10:24)
[2021-05-26] MEDS: SODIUM CHLOR 0.9% PF (SALINE LOCK) 10ML VIAL/SYR IV SCH ×2 (10:24→22:00)
[2021-05-26] MEDS: DexAMETHasone SOD PHOS 10MG/1ML VIAL INJ IV SCH (10:24)
[2021-05-26] MEDS: PANTOPRAZOLE 40 MG/10 ML VIAL INJ IV SCH (10:24)
[2021-05-26] MEDS: ASCORBIC ACID 500 MG TAB GT SCH (10:24)
[2021-05-26] MEDS: ASPirin 81 mg TAB PO SCH (10:24)
[2021-05-26] MEDS: NOREPINEPHRINE 8 MG/250ML KIT 250 ML IV SCH (17:30)
[2021-05-26] MEDS: ATORVASTATIN 20 MG TAB PO SCH (22:37)
[2021-05-27] VITALS (31 sets, daily range): BP systolic 85–170; BP diastolic 58–84
[2021-05-27] MEDS: InsuLIN REG 1unit/0.01ml Soln (100units/ml) SC SCH ×5 (00:25→23:55)
[2021-05-27] MEDS: MIDAZOLAM DRIP 50 mg/50mL 50 ML IV SCH ×4 (00:56→17:39)
[2021-05-27] MEDS: PROPOFOL 100 ML IV SCH ×4 (01:20→17:38)
[2021-05-27] MEDS: ACCU-CHEK COMFORT CURVE STRIP VI SCH ×5 (06:00→23:48)
[2021-05-27] MEDS: INSULIN LANTUS (GLARGINE) 1 /0.01ml (100units/ml) SC SCH ×2 (07:00→21:59)
[2021-05-27] MEDS: ASCORBIC ACID 500 MG TAB GT SCH (09:14)
[2021-05-27] MEDS: SODIUM CHLOR 0.9% PF (SALINE LOCK) 10ML VIAL/SYR IV SCH ×2 (09:14→21:57)
[2021-05-27] MEDS: ZINC SULFATE 220mg CAP or TAB GT SCH (09:14)
[2021-05-27] MEDS: ASPirin 81 mg TAB PO SCH (09:14)
[2021-05-27] MEDS: PANTOPRAZOLE 40 MG/10 ML VIAL INJ IV SCH (09:14)
[2021-05-27] MEDS: ENOXAPARIN SOD 40 MG/0.4 ML SYRINGE SC SCH (09:14)
[2021-05-27] MEDS: DexAMETHasone SOD PHOS 10MG/1ML VIAL INJ IV SCH (09:14)
[2021-05-27] MEDS: CHOLECALCIFEROL (VITD3) 2,000 UNIT CAP/TAB GT SCH (09:14)
[2021-05-27] MEDS: SODIUM CHLORIDE 0.9% 1,000 ML IV SCH (13:00)
[2021-05-27] MEDS: NOREPINEPHRINE 8 MG/250ML KIT 250 ML IV SCH (17:30)
[2021-05-27] MEDS: ATORVASTATIN 20 MG TAB PO SCH (21:58)
[2021-05-28] VITALS (26 sets, daily range): BP systolic 98–126; BP diastolic 54–75
[2021-05-28] MEDS: MIDAZOLAM DRIP 50 mg/50mL 50 ML IV SCH
[2021-05-28] MEDS: InsuLIN REG 1unit/0.01ml Soln (100units/ml) SC SCH ×3 (06:00→18:21)
[2021-05-28] MEDS: ACCU-CHEK COMFORT CURVE STRIP VI SCH ×3 (06:05→18:21)
[2021-05-28] MEDS: INSULIN LANTUS (GLARGINE) 1 /0.01ml (100units/ml) SC SCH ×2 (06:06→23:26)
[2021-05-28] MEDS: ASCORBIC ACID 500 MG TAB GT SCH (09:46)
[2021-05-28] MEDS: DexAMETHasone SOD PHOS 10MG/1ML VIAL INJ IV SCH (09:46)
[2021-05-28] MEDS: SODIUM CHLOR 0.9% PF (SALINE LOCK) 10ML VIAL/SYR IV SCH ×2 (09:46→23:25)
[2021-05-28] MEDS: PANTOPRAZOLE 40 MG/10 ML VIAL INJ IV SCH (09:46)
[2021-05-28] MEDS: ENOXAPARIN SOD 40 MG/0.4 ML SYRINGE SC SCH (09:46)
[2021-05-28] MEDS: CHOLECALCIFEROL (VITD3) 2,000 UNIT CAP/TAB GT SCH (09:46)
[2021-05-28] MEDS: ASPirin 81 mg TAB PO SCH (09:46)
[2021-05-28] MEDS: ZINC SULFATE 220mg CAP or TAB GT SCH (09:46)
[2021-05-28] MEDS: PROPOFOL 100 ML IV SCH ×2 (09:47)
[2021-05-28] MEDS: SODIUM CHLORIDE 0.9% 1,000 ML IV SCH (13:15)
[2021-05-28] MEDS: NOREPINEPHRINE 8 MG/250ML KIT 250 ML IV SCH (17:30)
[2021-05-28] MEDS: ATORVASTATIN 20 MG TAB PO SCH (23:25)
[2021-05-29] VITALS (22 sets, daily range): BP systolic 123–152; BP diastolic 64–77
[2021-05-29 04:31] LABS: Basophils # (auto) 0 10 ^3/uL (0-0.2); Basophils % (auto) 0.1 % (0.0-2.0); Eosinophils # (auto) 0 10 ^3/uL (0-0.8); Eosinophils % (auto) 0.3 % (0.0-7.0); Hematocrit 38.3 % (41.0-53.0); Lymphocytes # (auto) 0.6 10 ^3/uL (0.4-5.4); Lymphocytes % (auto) 4.8 % (10.0-50.0); Mean Corpuscular Hemoglobin 30.7 pg (28.0-32.0); Mean Corpuscular Volume 90.4 fL (80.0-100.0); Monocytes # (auto) 0.9 10 ^3/uL (0-1.3); Monocytes % (auto) 7.3 % (0.0-12.0); Neutrophils # (auto) 10.5 10 ^3/uL (1.6-8.6); Neutrophils % (auto) 87.5 % (37.0-80.0); Red Blood Cells 4.24 10^6/uL (4.5-5.90); Red Cell Distribution Width 13.7 % (11.8-14.3); White Blood Cell 11.9 10^3/uL (4.4-10.8)
[2021-05-29 04:46] LABS: Potassium 4.4 mmol/L (3.5-5.1)
[2021-05-29 04:50] LABS: Calcium 8.4 mg/dL (8.5-10.1)
[2021-05-29] MEDS: InsuLIN REG 1unit/0.01ml Soln (100units/ml) SC SCH ×4 (06:00→18:14)
[2021-05-29] MEDS: ACCU-CHEK COMFORT CURVE STRIP VI SCH ×4 (06:17→18:14)
[2021-05-29] MEDS: INSULIN LANTUS (GLARGINE) 1 /0.01ml (100units/ml) SC SCH ×2 (07:00→22:00)
[2021-05-29] MEDS: PANTOPRAZOLE 40 MG/10 ML VIAL INJ IV SCH (09:56)
[2021-05-29] MEDS: ZINC SULFATE 220mg CAP or TAB GT SCH (09:57)
[2021-05-29] MEDS: ENOXAPARIN SOD 40 MG/0.4 ML SYRINGE SC SCH (09:57)
[2021-05-29] MEDS: ASPirin 81 mg TAB PO SCH (09:57)
[2021-05-29] MEDS: DexAMETHasone SOD PHOS 10MG/1ML VIAL INJ IV SCH (09:57)
[2021-05-29] MEDS: SODIUM CHLOR 0.9% PF (SALINE LOCK) 10ML VIAL/SYR IV SCH ×2 (09:57→22:00)
[2021-05-29] MEDS: ASCORBIC ACID 500 MG TAB GT SCH (09:57)
[2021-05-29] MEDS: CHOLECALCIFEROL (VITD3) 2,000 UNIT CAP/TAB GT SCH (10:00)
[2021-05-29] MEDS: SODIUM CHLORIDE 0.9% 1,000 ML IV SCH (17:21)
[2021-05-29] MEDS: NOREPINEPHRINE 8 MG/250ML KIT 250 ML IV SCH (17:30)
[2021-05-29] MEDS: PROPOFOL 100 ML IV SCH (18:15)
[2021-05-29] MEDS: MIDAZOLAM DRIP 50 mg/50mL 50 ML IV SCH (20:30)
[2021-05-29] MEDS: ALBUTEROL SULF 2.5 MG/0.5ML(0.5%) NEB SOLN NEB PRN (20:55)
[2021-05-29] MEDS: ATORVASTATIN 20 MG TAB PO SCH (22:00)
[2021-05-30] VITALS (28 sets, daily range): BP systolic 101–144; BP diastolic 61–81
[2021-05-30] MEDS: MIDAZOLAM DRIP 50 mg/50mL 50 ML IV SCH ×3 (00:48→15:58)
[2021-05-30] MEDS: InsuLIN REG 1unit/0.01ml Soln (100units/ml) SC SCH ×4 (06:00→18:01)
[2021-05-30] MEDS: ACCU-CHEK COMFORT CURVE STRIP VI SCH ×4 (06:00→18:00)
[2021-05-30] MEDS: INSULIN LANTUS (GLARGINE) 1 /0.01ml (100units/ml) SC SCH ×2 (08:25→22:00)
[2021-05-30] MEDS: ASPirin 81 mg TAB PO SCH (10:00)
[2021-05-30] MEDS: PANTOPRAZOLE 40 MG/10 ML VIAL INJ IV SCH (10:06)
[2021-05-30] MEDS: DexAMETHasone SOD PHOS 10MG/1ML VIAL INJ IV SCH (10:06)
[2021-05-30] MEDS: ZINC SULFATE 220mg CAP or TAB GT SCH (10:06)
[2021-05-30] MEDS: CHOLECALCIFEROL (VITD3) 2,000 UNIT CAP/TAB GT SCH (10:06)
[2021-05-30] MEDS: ASCORBIC ACID 500 MG TAB GT SCH (10:06)
[2021-05-30] MEDS: SODIUM CHLOR 0.9% PF (SALINE LOCK) 10ML VIAL/SYR IV SCH ×2 (10:07→22:00)
[2021-05-30] MEDS: ENOXAPARIN SOD 40 MG/0.4 ML SYRINGE SC SCH (10:07)
[2021-05-30] MEDS: PROPOFOL 100 ML IV SCH (13:35)
[2021-05-30] MEDS: ONDANSETRON HCL 4 MG/2 ML VIAL IV PRN (14:47)
[2021-05-30] MEDS: SODIUM CHLORIDE 0.9% 1,000 ML IV SCH (15:57)
[2021-05-30] MEDS: ALBUTEROL SULF 2.5 MG/0.5ML(0.5%) NEB SOLN NEB PRN ×2 (19:41→23:08)
[2021-05-30] MEDS: ACETYLCYSTEINE 20%(200MG/ML) SOL 4ML NEB SCH ×2 (19:43→23:08)
[2021-05-30] MEDS: ATORVASTATIN 20 MG TAB PO SCH (22:00)
[2021-05-31] VITALS (25 sets, daily range): BP systolic 104–173; BP diastolic 58–79
[2021-05-31] MEDS: ACETYLCYSTEINE 20%(200MG/ML) SOL 4ML NEB SCH ×6 (02:55→21:57)
[2021-05-31] MEDS: ALBUTEROL SULF 2.5 MG/0.5ML(0.5%) NEB SOLN NEB PRN ×4 (02:55→21:57)
[2021-05-31 04:30] LABS: Basophils # (auto) 0.1 10 ^3/uL (0-0.2); Basophils % (auto) 0.9 % (0.0-2.0); Eosinophils # (auto) 0.1 10 ^3/uL (0-0.8); Eosinophils % (auto) 0.5 % (0.0-7.0); Hematocrit 37.1 % (41.0-53.0); Hemoglobin 12.2 g/dL (13.5-17.5); Lymphocytes # (auto) 0.5 10 ^3/uL (0.4-5.4); Lymphocytes % (auto) 4.6 % (10.0-50.0); Mean Corpuscular Hemoglobin 29.4 pg (28.0-32.0); Mean Corpuscular Hgb Conc. 32.8 g/dL (32.0-36.0); Mean Corpuscular Volume 89.6 fL (80.0-100.0); Monocytes # (auto) 0.9 10 ^3/uL (0-1.3); Monocytes % (auto) 7.8 % (0.0-12.0); Neutrophils % (auto) 86.2 % (37.0-80.0); Red Blood Cells 4.14 10^6/uL (4.5-5.90); Red Cell Distribution Width 13.9 % (11.8-14.3); White Blood Cell 11.6 10^3/uL (4.4-10.8)
[2021-05-31 04:42] LABS: Calcium 8.7 mg/dL (8.5-10.1)
[2021-05-31 04:44] LABS: BUN/Creatinine Ratio 68.6
[2021-05-31] MEDS: InsuLIN REG 1unit/0.01ml Soln (100units/ml) SC SCH ×4 (05:28→17:52)
[2021-05-31] MEDS: ACCU-CHEK COMFORT CURVE STRIP VI SCH ×4 (05:37→17:51)
[2021-05-31] MEDS: INSULIN LANTUS (GLARGINE) 1 /0.01ml (100units/ml) SC SCH ×2 (06:55→22:00)
[2021-05-31] MEDS: PROPOFOL 100 ML IV SCH (07:54)
[2021-05-31] MEDS: ASPirin 81 mg TAB PO SCH (09:52)
[2021-05-31] MEDS: ZINC SULFATE 220mg CAP or TAB GT SCH (09:52)
[2021-05-31] MEDS: DexAMETHasone SOD PHOS 10MG/1ML VIAL INJ IV SCH (09:52)
[2021-05-31] MEDS: ENOXAPARIN SOD 40 MG/0.4 ML SYRINGE SC SCH (09:52)
[2021-05-31] MEDS: PANTOPRAZOLE 40 MG/10 ML VIAL INJ IV SCH (09:52)
[2021-05-31] MEDS: SODIUM CHLOR 0.9% PF (SALINE LOCK) 10ML VIAL/SYR IV SCH ×2 (09:52→22:00)
[2021-05-31] MEDS: ASCORBIC ACID 500 MG TAB GT SCH (09:52)
[2021-05-31] MEDS: CHOLECALCIFEROL (VITD3) 2,000 UNIT CAP/TAB GT SCH (10:00)
[2021-05-31] MEDS ORDERED: FUROSEMIDE 20 MG/2 ML VIAL IV ONE (18:45)
[2021-05-31] MEDS: ATORVASTATIN 20 MG TAB PO SCH (22:00)
[2021-05-31] MEDS: SODIUM CHLORIDE 0.9% 1,000 ML IV SCH (23:30)
[2021-06-01] VITALS (61 sets, daily range): BP systolic 73–161; BP diastolic 48–76
[2021-06-01] MEDS: ACETAMINOPHEN 650 mg PER 20.3 mL UD GT PRN (01:14)
[2021-06-01] MEDS: ALBUTEROL SULF 2.5 MG/0.5ML(0.5%) NEB SOLN NEB PRN ×5 (02:04→21:57)
[2021-06-01] MEDS: ACETYLCYSTEINE 20%(200MG/ML) SOL 4ML NEB SCH ×6 (02:04→21:57)
[2021-06-01] MEDS: INSULIN LANTUS (GLARGINE) 1 /0.01ml (100units/ml) SC SCH ×2 (07:00→22:00)
[2021-06-01] MEDS: ENOXAPARIN SOD 40 MG/0.4 ML SYRINGE SC SCH (08:59)
[2021-06-01] MEDS: PANTOPRAZOLE 40 MG/10 ML VIAL INJ IV SCH (08:59)
[2021-06-01] MEDS: DexAMETHasone SOD PHOS 10MG/1ML VIAL INJ IV SCH (09:02)
[2021-06-01] MEDS: PROPOFOL 100 ML IV SCH (09:13)
[2021-06-01] MEDS: MIDAZOLAM DRIP 50 mg/50mL 50 ML IV SCH ×2 (09:13→16:01)
[2021-06-01] MEDS ORDERED: ACETAMINOPHEN 650 MG RECT SUPP PR ONE (09:15)
[2021-06-01] MEDS: ASPirin 81 mg TAB PO SCH (11:43)
[2021-06-01] MEDS: CHOLECALCIFEROL (VITD3) 2,000 UNIT CAP/TAB GT SCH (11:43)
[2021-06-01] MEDS: SODIUM CHLOR 0.9% PF (SALINE LOCK) 10ML VIAL/SYR IV SCH ×2 (11:43→22:00)
[2021-06-01] MEDS: ASCORBIC ACID 500 MG TAB GT SCH (11:43)
[2021-06-01] MEDS: InsuLIN REG 1unit/0.01ml Soln (100units/ml) SC SCH ×3 (11:44→18:21)
[2021-06-01] MEDS: ACCU-CHEK COMFORT CURVE STRIP VI SCH ×3 (11:44→18:21)
[2021-06-01] MEDS: ZINC SULFATE 220mg CAP or TAB GT SCH (11:44)
[2021-06-01 15:20] LABS: Hematocrit 35.8 % (41.0-53.0); Mean Corpuscular Hemoglobin 29.6 pg (28.0-32.0); Mean Corpuscular Hgb Conc. 33.5 g/dL (32.0-36.0); Mean Corpuscular Volume 88.4 fL (80.0-100.0); Red Blood Cells 4.05 10^6/uL (4.5-5.90); White Blood Cell 21.2 10^3/uL (4.4-10.8)
[2021-06-01 15:39] LABS: Potassium 3.7 mmol/L (3.5-5.1)
[2021-06-01 15:45] LABS: Basophils % (manual) 0 (0.0-2.0); Blast Cells 0; Eosinophils % (manual) 0 (0-7); Metamyelocytes % 0; Myelocytes % 0; Promyelocytes % 0; Reactive Lymphocytes 0
[2021-06-01 17:14] LABS: Band Neutrophils % (manual) 7; Lymphocytes % (manual) 1 (10.0-50.0); Monocytes % (manual) 2 (0-12)
[2021-06-01] MEDS: SODIUM CHLORIDE 0.9% 1,000 ML IV SCH (18:00)
[2021-06-01] MEDS: ATORVASTATIN 20 MG TAB PO SCH (22:00)
[2021-06-02] VITALS (28 sets, daily range): BP systolic 98–146; BP diastolic 53–78
[2021-06-02] MEDS: ACCU-CHEK COMFORT CURVE STRIP VI SCH ×4 (00:25→18:29)
[2021-06-02 04:43] LABS: Basophils # (auto) 0 10 ^3/uL (0-0.2); Basophils % (auto) 0.2 % (0.0-2.0); Eosinophils # (auto) 0 10 ^3/uL (0-0.8); Eosinophils % (auto) 0.2 % (0.0-7.0); Hematocrit 34.7 % (41.0-53.0); Hemoglobin 11.9 g/dL (13.5-17.5); Lymphocytes # (auto) 0.4 10 ^3/uL (0.4-5.4); Lymphocytes % (auto) 2.8 % (10.0-50.0); Mean Corpuscular Hemoglobin 30.8 pg (28.0-32.0); Mean Corpuscular Hgb Conc. 34.2 g/dL (32.0-36.0); Mean Corpuscular Volume 90.2 fL (80.0-100.0); Monocytes % (auto) 6.6 % (0.0-12.0); Neutrophils # (auto) 13.6 10 ^3/uL (1.6-8.6); Neutrophils % (auto) 90.2 % (37.0-80.0); Nucleated Red Blood Cells % 0.1 %; Red Blood Cells 3.84 10^6/uL (4.5-5.90); Red Cell Distribution Width 14.2 % (11.8-14.3)
[2021-06-02 05:02] LABS: Calcium 8.6 mg/dL (8.5-10.1); Potassium 4.1 mmol/L (3.5-5.1)
[2021-06-02 05:10] LABS: BUN/Creatinine Ratio 58.3
[2021-06-02] MEDS: InsuLIN REG 1unit/0.01ml Soln (100units/ml) SC SCH ×4 (06:00→18:29)
[2021-06-02] MEDS: INSULIN LANTUS (GLARGINE) 1 /0.01ml (100units/ml) SC SCH ×2 (06:25→22:00)
[2021-06-02] MEDS: ACETYLCYSTEINE 20%(200MG/ML) SOL 4ML NEB SCH ×3 (09:23→11:38)
[2021-06-02] MEDS: ALBUTEROL SULF 2.5 MG/0.5ML(0.5%) NEB SOLN NEB PRN ×3 (09:23→11:39)
[2021-06-02] MEDS: ENOXAPARIN SOD 40 MG/0.4 ML SYRINGE SC SCH (09:35)
[2021-06-02] MEDS: DexAMETHasone SOD PHOS 4 MG/1ML SDV INJ IV SCH (09:35)
[2021-06-02] MEDS: PANTOPRAZOLE 40 MG/10 ML VIAL INJ IV SCH (09:36)
[2021-06-02] MEDS: SODIUM CHLOR 0.9% PF (SALINE LOCK) 10ML VIAL/SYR IV SCH ×2 (09:36→22:00)
[2021-06-02] MEDS: NOREPINEPHRINE 8 MG/250ML KIT 250 ML IV SCH (10:04)
[2021-06-02] MEDS ORDERED: FUROSEMIDE 20 MG/2 ML VIAL IV ONE (12:00)
[2021-06-02] MEDS: ASPirin 81 mg TAB PO SCH (16:42)
[2021-06-02] MEDS: CHOLECALCIFEROL (VITD3) 2,000 UNIT CAP/TAB GT SCH (16:43)
[2021-06-02] MEDS: ASCORBIC ACID 500 MG TAB GT SCH (16:43)
[2021-06-02] MEDS: ZINC SULFATE 220mg CAP or TAB GT SCH (16:43)
[2021-06-02] MEDS: ATORVASTATIN 20 MG TAB PO SCH (22:00)
[2021-06-03] VITALS (42 sets, daily range): BP systolic 125–165; BP diastolic 57–91
[2021-06-03 04:07] LABS: Basophils # (auto) 0.1 10 ^3/uL (0-0.2); Basophils % (auto) 0.4 % (0.0-2.0); Eosinophils # (auto) 0.1 10 ^3/uL (0-0.8); Eosinophils % (auto) 0.5 % (0.0-7.0); Hematocrit 35.7 % (41.0-53.0); Hemoglobin 12.2 g/dL (13.5-17.5); Lymphocytes # (auto) 0.4 10 ^3/uL (0.4-5.4); Lymphocytes % (auto) 2.8 % (10.0-50.0); Mean Corpuscular Hemoglobin 30.4 pg (28.0-32.0); Mean Corpuscular Hgb Conc. 34.1 g/dL (32.0-36.0); Mean Corpuscular Volume 89.2 fL (80.0-100.0); Monocytes # (auto) 0.8 10 ^3/uL (0-1.3); Monocytes % (auto) 6.4 % (0.0-12.0); Neutrophils # (auto) 11.8 10 ^3/uL (1.6-8.6); Neutrophils % (auto) 89.9 % (37.0-80.0); Red Cell Distribution Width 13.8 % (11.8-14.3); White Blood Cell 13.1 10^3/uL (4.4-10.8)
[2021-06-03 04:23] LABS: Calcium 8.8 mg/dL (8.5-10.1); Potassium 3.3 mmol/L (3.5-5.1)
[2021-06-03 04:26] LABS: BUN/Creatinine Ratio 48.9
[2021-06-03] MEDS: InsuLIN REG 1unit/0.01ml Soln (100units/ml) SC SCH ×4 (07:00→17:41)
[2021-06-03] MEDS: INSULIN LANTUS (GLARGINE) 1 /0.01ml (100units/ml) SC SCH ×2 (07:00→22:11)
[2021-06-03] MEDS: NOREPINEPHRINE 8 MG/250ML KIT 250 ML IV SCH ×3 (09:56→17:30)
[2021-06-03] MEDS: PROPOFOL 100 ML IV SCH (09:56)
[2021-06-03] MEDS: SODIUM CHLORIDE 0.9% 1,000 ML IV SCH ×2 (09:56→15:13)
[2021-06-03] MEDS: MIDAZOLAM DRIP 50 mg/50mL 50 ML IV SCH (09:57)
[2021-06-03] MEDS: ASCORBIC ACID 500 MG TAB GT SCH (09:58)
[2021-06-03] MEDS: CHOLECALCIFEROL (VITD3) 2,000 UNIT CAP/TAB GT SCH (09:58)
[2021-06-03] MEDS: ZINC SULFATE 220mg CAP or TAB GT SCH (09:58)
[2021-06-03] MEDS: PANTOPRAZOLE 40 MG/10 ML VIAL INJ IV SCH (09:59)
[2021-06-03] MEDS: DexAMETHasone SOD PHOS 4 MG/1ML SDV INJ IV SCH (09:59)
[2021-06-03] MEDS: ASPirin 81 mg TAB PO SCH (10:00)
[2021-06-03] MEDS: ENOXAPARIN SOD 40 MG/0.4 ML SYRINGE SC SCH (10:03)
[2021-06-03] MEDS: SODIUM CHLOR 0.9% PF (SALINE LOCK) 10ML VIAL/SYR IV SCH ×2 (10:04→22:04)
[2021-06-03] MEDS: ACCU-CHEK COMFORT CURVE STRIP VI SCH ×3 (12:00→17:41)
[2021-06-03] MEDS ORDERED: FUROSEMIDE 20 MG/2 ML VIAL IV ONE (13:00)
[2021-06-03] MEDS: POTASSIUM CHL 10MEQ/50ML 50 ML IV SCH ×4 (14:10→17:05)
[2021-06-03] MEDS: ATORVASTATIN 20 MG TAB PO SCH (22:04)
[2021-06-04] VITALS (17 sets, daily range): BP systolic 105–179; BP diastolic 70–94
[2021-06-04] MEDS ORDERED: EPINEPHrine HCL 0.5 ML NEB ONE (00:14)
[2021-06-04] MEDS ORDERED: hydrALAZINE HCL 10 MG TAB ONE (00:30)
[2021-06-04] MEDS ORDERED: EPINEPHrine HCL 0.5 ML NEB NEB ONE (00:30)
[2021-06-04] MEDS ORDERED: ALPRAZolam 0.5 MG TAB ONE (00:31)
[2021-06-04] MEDS: ALPRAZolam 0.5 MG TAB PO PRN ×2 (00:56→10:14)
[2021-06-04] MEDS: hydrALAZINE HCL 10 MG TAB PO PRN ×2 (00:58→10:13)
[2021-06-04 04:09] LABS: Basophils # (auto) 0 10 ^3/uL (0-0.2); Basophils % (auto) 0.1 % (0.0-2.0); Eosinophils # (auto) 0 10 ^3/uL (0-0.8); Eosinophils % (auto) 0.4 % (0.0-7.0); Hematocrit 38.2 % (41.0-53.0); Hemoglobin 12.5 g/dL (13.5-17.5); Lymphocytes # (auto) 0.5 10 ^3/uL (0.4-5.4); Mean Corpuscular Hemoglobin 29.1 pg (28.0-32.0); Mean Corpuscular Hgb Conc. 32.8 g/dL (32.0-36.0); Mean Corpuscular Volume 88.9 fL (80.0-100.0); Monocytes # (auto) 0.8 10 ^3/uL (0-1.3); Monocytes % (auto) 8.3 % (0.0-12.0); Neutrophils # (auto) 8.7 10 ^3/uL (1.6-8.6); Neutrophils % (auto) 86.2 % (37.0-80.0); Red Cell Distribution Width 14.2 % (11.8-14.3); White Blood Cell 10.1 10^3/uL (4.4-10.8)
[2021-06-04 04:27] LABS: BUN/Creatinine Ratio 62.2; Calcium 8.7 mg/dL (8.5-10.1); Potassium 3.1 mmol/L (3.5-5.1)
[2021-06-04] MEDS: ACCU-CHEK COMFORT CURVE STRIP VI SCH ×4 (06:00→18:00)
[2021-06-04] MEDS: INSULIN LANTUS (GLARGINE) 1 /0.01ml (100units/ml) SC SCH ×2 (07:00→23:12)
[2021-06-04] MEDS: InsuLIN REG 1unit/0.01ml Soln (100units/ml) SC SCH ×4 (07:30→18:00)
[2021-06-04] MEDS: CHOLECALCIFEROL (VITD3) 2,000 UNIT CAP/TAB GT SCH (10:11)
[2021-06-04] MEDS: ASCORBIC ACID 500 MG TAB GT SCH (10:11)
[2021-06-04] MEDS: ZINC SULFATE 220mg CAP or TAB GT SCH (10:11)
[2021-06-04] MEDS: ASPirin 81 mg TAB PO SCH (10:12)
[2021-06-04] MEDS: ENOXAPARIN SOD 40 MG/0.4 ML SYRINGE SC SCH (10:12)
[2021-06-04] MEDS: DexAMETHasone SOD PHOS 4 MG/1ML SDV INJ IV SCH (10:12)
[2021-06-04] MEDS: PANTOPRAZOLE 40 MG/10 ML VIAL INJ IV SCH (10:12)
[2021-06-04] MEDS: SODIUM CHLOR 0.9% PF (SALINE LOCK) 10ML VIAL/SYR IV SCH ×2 (10:12→22:00)
[2021-06-04] MEDS: LISINOPRIL 10 MG TAB PO SCH (10:12)
[2021-06-04] MEDS ORDERED: POTASSIUM CHL 10MEQ/50ML 50 ML IV SCH (11:45)
[2021-06-04] MEDS: ACETAMINOPHEN 650 mg PER 20.3 mL UD GT PRN ×2 (11:57→13:01)
[2021-06-04] MEDS: METOPROLOL TARTRATE 25 MG TAB PO SCH ×2 (13:06→22:44)
[2021-06-04] MEDS: SODIUM CHLORIDE 0.9% 1,000 ML IV SCH (14:30)
[2021-06-04] MEDS: MORPHINE SULFATE INJECTION 2 MG/ML SYRG IV PRN ×2 (18:06→22:45)
[2021-06-04] MEDS: ONDANSETRON HCL 4 MG/2 ML VIAL IV PRN (18:22)
[2021-06-04] MEDS: ATORVASTATIN 20 MG TAB PO SCH (22:43)
[2021-06-05] MEDS: ACCU-CHEK COMFORT CURVE STRIP VI SCH ×5 (00:27→23:09)
[2021-06-05 05:00] VITALS: BP 141/81
[2021-06-05] MEDS: InsuLIN REG 1unit/0.01ml Soln (100units/ml) SC SCH ×5 (06:00→23:16)
[2021-06-05] MEDS: INSULIN LANTUS (GLARGINE) 1 /0.01ml (100units/ml) SC SCH ×2 (07:00→21:40)
[2021-06-05 09:00] VITALS: BP 110/70
[2021-06-05] MEDS: METOPROLOL TARTRATE 25 MG TAB PO SCH ×2 (10:00→21:31)
[2021-06-05] MEDS: ASCORBIC ACID 500 MG TAB GT SCH (10:00)
[2021-06-05] MEDS: ENOXAPARIN SOD 40 MG/0.4 ML SYRINGE SC SCH (10:00)
[2021-06-05] MEDS: ASPirin 81 mg TAB PO SCH (10:00)
[2021-06-05] MEDS: SODIUM CHLOR 0.9% PF (SALINE LOCK) 10ML VIAL/SYR IV SCH ×2 (10:00→21:27)
[2021-06-05] MEDS: CHOLECALCIFEROL (VITD3) 2,000 UNIT CAP/TAB GT SCH (10:00)
[2021-06-05] MEDS: PANTOPRAZOLE 40 MG/10 ML VIAL INJ IV SCH (10:00)
[2021-06-05] MEDS: POTASSIUM EFFERVESENT TAB 25 MEQ PO SCH (10:00)
[2021-06-05] MEDS: LISINOPRIL 10 MG TAB PO SCH (10:00)
[2021-06-05] MEDS: DexAMETHasone SOD PHOS 4 MG/1ML SDV INJ IV SCH (10:00)
[2021-06-05] MEDS: ZINC SULFATE 220mg CAP or TAB GT SCH (10:00)
[2021-06-05 12:18] LABS: BUN/Creatinine Ratio 41.5; Basophils # (auto) 0 10 ^3/uL (0-0.2); Basophils % (auto) 0.3 % (0.0-2.0); Calcium 9.4 mg/dL (8.5-10.1); Eosinophils # (auto) 0.1 10 ^3/uL (0-0.8); Eosinophils % (auto) 0.7 % (0.0-7.0); Hematocrit 45.2 % (41.0-53.0); Hemoglobin 15.4 g/dL (13.5-17.5); Lymphocytes # (auto) 0.4 10 ^3/uL (0.4-5.4); Lymphocytes % (auto) 3.9 % (10.0-50.0); Mean Corpuscular Hemoglobin 30.7 pg (28.0-32.0); Mean Corpuscular Hgb Conc. 34.1 g/dL (32.0-36.0); Monocytes # (auto) 0.6 10 ^3/uL (0-1.3); Monocytes % (auto) 6.9 % (0.0-12.0); Neutrophils # (auto) 8.1 10 ^3/uL (1.6-8.6); Neutrophils % (auto) 88.2 % (37.0-80.0); Potassium 3.2 mmol/L (3.5-5.1); Red Blood Cells 5.02 10^6/uL (4.5-5.90); Red Cell Distribution Width 14.1 % (11.8-14.3); White Blood Cell 9.2 10^3/uL (4.4-10.8)
[2021-06-05 13:00] VITALS: BP 145/77
[2021-06-05] MEDS: SODIUM CHLORIDE 0.9% 1,000 ML IV SCH (13:00)
[2021-06-05 17:00] VITALS: BP 135/83
[2021-06-05] MEDS: ATORVASTATIN 20 MG TAB PO SCH (21:30)
[2021-06-05] MEDS: ALPRAZolam 0.5 MG TAB PO PRN (21:31)
[2021-06-05 22:00] VITALS: BP 114/75
[2021-06-06 03:12] VITALS: BP 116/53
[2021-06-06 05:00] VITALS: BP 121/64
[2021-06-06] MEDS: InsuLIN REG 1unit/0.01ml Soln (100units/ml) SC SCH ×4 (05:51→23:28)
[2021-06-06] MEDS: ACCU-CHEK COMFORT CURVE STRIP VI SCH ×4 (05:51→23:28)
[2021-06-06] MEDS: INSULIN LANTUS (GLARGINE) 1 /0.01ml (100units/ml) SC SCH ×2 (06:01→22:30)
[2021-06-06 08:46] LABS: Basophils # (auto) 0 10 ^3/uL (0-0.2); Basophils % (auto) 0.1 % (0.0-2.0); Eosinophils # (auto) 0.2 10 ^3/uL (0-0.8); Eosinophils % (auto) 2.8 % (0.0-7.0); Hemoglobin 13.2 g/dL (13.5-17.5); Lymphocytes # (auto) 0.6 10 ^3/uL (0.4-5.4); Lymphocytes % (auto) 7.2 % (10.0-50.0); Mean Corpuscular Hemoglobin 30.2 pg (28.0-32.0); Mean Corpuscular Hgb Conc. 33.9 g/dL (32.0-36.0); Mean Corpuscular Volume 89.3 fL (80.0-100.0); Monocytes # (auto) 0.7 10 ^3/uL (0-1.3); Monocytes % (auto) 7.6 % (0.0-12.0); Neutrophils % (auto) 82.3 % (37.0-80.0); Red Blood Cells 4.37 10^6/uL (4.5-5.90); Red Cell Distribution Width 14.2 % (11.8-14.3); White Blood Cell 8.5 10^3/uL (4.4-10.8)
[2021-06-06 09:00] VITALS: BP 119/69
[2021-06-06] MEDS: POTASSIUM EFFERVESENT TAB 25 MEQ PO SCH (10:00)
[2021-06-06] MEDS: ENOXAPARIN SOD 40 MG/0.4 ML SYRINGE SC SCH (10:00)
[2021-06-06] MEDS: DexAMETHasone SOD PHOS 4 MG/1ML SDV INJ IV SCH (10:00)
[2021-06-06] MEDS: ZINC SULFATE 220mg CAP or TAB GT SCH (10:00)
[2021-06-06] MEDS: ASPirin 81 mg TAB PO SCH (10:00)
[2021-06-06] MEDS: ASCORBIC ACID 500 MG TAB GT SCH (10:00)
[2021-06-06] MEDS: CHOLECALCIFEROL (VITD3) 2,000 UNIT CAP/TAB GT SCH (10:00)
[2021-06-06] MEDS: METOPROLOL TARTRATE 25 MG TAB PO SCH ×2 (10:00→22:18)
[2021-06-06] MEDS: SODIUM CHLOR 0.9% PF (SALINE LOCK) 10ML VIAL/SYR IV SCH ×2 (10:00→22:17)
[2021-06-06] MEDS: PANTOPRAZOLE 40 MG/10 ML VIAL INJ IV SCH (10:00)
[2021-06-06] MEDS: LISINOPRIL 10 MG TAB PO SCH (10:00)
[2021-06-06] MEDS: MORPHINE SULFATE INJECTION 2 MG/ML SYRG IV PRN (10:35)
[2021-06-06] MEDS: ONDANSETRON HCL 4 MG/2 ML VIAL IV PRN (10:35)
[2021-06-06 11:09] LABS: BUN/Creatinine Ratio 51.3; Calcium 8.8 mg/dL (8.5-10.1); Potassium 3.1 mmol/L (3.5-5.1)
[2021-06-06] MEDS: SODIUM CHLORIDE 0.9% 1,000 ML IV SCH (13:00)
[2021-06-06 13:01] VITALS: BP 134/72
[2021-06-06 17:00] VITALS: BP 100/63
[2021-06-06 22:00] VITALS: BP 135/77
[2021-06-06] MEDS: ALPRAZolam 0.5 MG TAB PO PRN (22:18)
[2021-06-06] MEDS: ATORVASTATIN 20 MG TAB PO SCH (22:18)
[2021-06-07 05:00] VITALS: BP 131/76
[2021-06-07] MEDS: InsuLIN REG 1unit/0.01ml Soln (100units/ml) SC SCH ×3 (06:00→18:00)
[2021-06-07] MEDS: ACCU-CHEK COMFORT CURVE STRIP VI SCH ×3 (06:20→18:23)
[2021-06-07] MEDS: INSULIN LANTUS (GLARGINE) 1 /0.01ml (100units/ml) SC SCH ×2 (06:24→21:44)
[2021-06-07 09:00] VITALS: BP 140/76
[2021-06-07 09:15] LABS: Basophils # (auto) 0 10 ^3/uL (0-0.2); Basophils % (auto) 0.1 % (0.0-2.0); Eosinophils # (auto) 0.4 10 ^3/uL (0-0.8); Eosinophils % (auto) 4.5 % (0.0-7.0); Hematocrit 39.5 % (41.0-53.0); Hemoglobin 12.9 g/dL (13.5-17.5); Lymphocytes # (auto) 0.6 10 ^3/uL (0.4-5.4); Lymphocytes % (auto) 7.6 % (10.0-50.0); Mean Corpuscular Hemoglobin 29.3 pg (28.0-32.0); Mean Corpuscular Hgb Conc. 32.7 g/dL (32.0-36.0); Mean Corpuscular Volume 89.4 fL (80.0-100.0); Monocytes # (auto) 0.4 10 ^3/uL (0-1.3); Neutrophils # (auto) 6.5 10 ^3/uL (1.6-8.6); Neutrophils % (auto) 82.8 % (37.0-80.0); Nucleated Red Blood Cells % 0.2 %; Red Blood Cells 4.42 10^6/uL (4.5-5.90); Red Cell Distribution Width 14.4 % (11.8-14.3); White Blood Cell 7.9 10^3/uL (4.4-10.8)
[2021-06-07 09:25] LABS: BUN/Creatinine Ratio 17.8; Calcium 8.9 mg/dL (8.5-10.1); Potassium 3.1 mmol/L (3.5-5.1)
[2021-06-07] MEDS: ZINC SULFATE 220mg CAP or TAB GT SCH (09:37)
[2021-06-07] MEDS: ASCORBIC ACID 500 MG TAB GT SCH (09:38)
[2021-06-07] MEDS: DexAMETHasone SOD PHOS 4 MG/1ML SDV INJ IV SCH (09:38)
[2021-06-07] MEDS: SODIUM CHLOR 0.9% PF (SALINE LOCK) 10ML VIAL/SYR IV SCH ×2 (09:38→21:33)
[2021-06-07] MEDS: ASPirin 81 mg TAB PO SCH (09:38)
[2021-06-07] MEDS: PANTOPRAZOLE 40 MG/10 ML VIAL INJ IV SCH (09:38)
[2021-06-07] MEDS: CHOLECALCIFEROL (VITD3) 2,000 UNIT CAP/TAB GT SCH (09:38)
[2021-06-07] MEDS: LISINOPRIL 10 MG TAB PO SCH (09:39)
[2021-06-07] MEDS: POTASSIUM EFFERVESENT TAB 25 MEQ PO SCH (09:39)
[2021-06-07] MEDS: ENOXAPARIN SOD 40 MG/0.4 ML SYRINGE SC SCH (09:39)
[2021-06-07] MEDS: METOPROLOL TARTRATE 25 MG TAB PO SCH ×2 (09:39→21:33)
[2021-06-07] MEDS: SODIUM CHLORIDE 0.9% 1,000 ML IV SCH (13:00)
[2021-06-07 13:23] VITALS: BP 136/73
[2021-06-07 17:00] VITALS: BP 142/70
[2021-06-07] MEDS: ATORVASTATIN 20 MG TAB PO SCH (21:33)
[2021-06-07] MEDS: ALPRAZolam 0.5 MG TAB PO PRN (21:34)
[2021-06-07 22:00] VITALS: BP 125/74
[2021-06-08] MEDS: ACCU-CHEK COMFORT CURVE STRIP VI SCH ×5 (00:01→22:49)
[2021-06-08 05:00] VITALS: BP 143/71
[2021-06-08] MEDS: InsuLIN REG 1unit/0.01ml Soln (100units/ml) SC SCH ×5 (06:00→22:49)
[2021-06-08] MEDS: INSULIN LANTUS (GLARGINE) 1 /0.01ml (100units/ml) SC SCH ×2 (06:18→22:00)
[2021-06-08] MEDS: SODIUM CHLORIDE 0.9% 1,000 ML IV SCH (06:25)
[2021-06-08] MEDS: ASCORBIC ACID 500 MG TAB GT SCH (08:46)
[2021-06-08] MEDS: ZINC SULFATE 220mg CAP or TAB GT SCH (08:46)
[2021-06-08] MEDS: CHOLECALCIFEROL (VITD3) 2,000 UNIT CAP/TAB GT SCH (08:46)
[2021-06-08] MEDS: DexAMETHasone SOD PHOS 4 MG/1ML SDV INJ IV SCH (08:47)
[2021-06-08] MEDS: PANTOPRAZOLE 40 MG/10 ML VIAL INJ IV SCH (08:47)
[2021-06-08] MEDS: SODIUM CHLOR 0.9% PF (SALINE LOCK) 10ML VIAL/SYR IV SCH ×2 (08:47→22:30)
[2021-06-08] MEDS: METOPROLOL TARTRATE 25 MG TAB PO SCH ×2 (08:48→22:29)
[2021-06-08] MEDS: ASPirin 81 mg TAB PO SCH (08:48)
[2021-06-08] MEDS: POTASSIUM EFFERVESENT TAB 25 MEQ PO SCH (08:48)
[2021-06-08] MEDS: LISINOPRIL 10 MG TAB PO SCH (08:50)
[2021-06-08] MEDS: ENOXAPARIN SOD 40 MG/0.4 ML SYRINGE SC SCH (08:50)
[2021-06-08 16:47] VITALS: BP 139/88
[2021-06-08] MEDS: ACETAMINOPHEN 650 mg PER 20.3 mL UD PO PRN (18:15)
[2021-06-08 22:00] VITALS: BP 133/66
[2021-06-08] MEDS: ATORVASTATIN 20 MG TAB PO SCH (22:29)
[2021-06-08] MEDS: ALBUTEROL SULF 2.5 MG/0.5ML(0.5%) NEB SOLN NEB PRN (22:52)
[2021-06-09] VITALS (9 sets, daily range): BP systolic 110–138; BP diastolic 63–82
[2021-06-09] MEDS: InsuLIN REG 1unit/0.01ml Soln (100units/ml) SC SCH ×4 (06:00→23:00)
[2021-06-09] MEDS: INSULIN LANTUS (GLARGINE) 1 /0.01ml (100units/ml) SC SCH ×2 (06:18→22:55)
[2021-06-09] MEDS: ACCU-CHEK COMFORT CURVE STRIP VI SCH ×4 (06:18→23:27)
[2021-06-09] MEDS ORDERED: DOCUSATE ORAL LIQUID 100 MG/10 ML UD PO PRN (09:15)
[2021-06-09] MEDS: MORPHINE SULFATE INJECTION 2 MG/ML SYRG IV PRN (10:26)
[2021-06-09] MEDS: POTASSIUM EFFERVESENT TAB 25 MEQ PO SCH (10:27)
[2021-06-09] MEDS: PANTOPRAZOLE 40 MG/10 ML VIAL INJ IV SCH (10:27)
[2021-06-09] MEDS: CHOLECALCIFEROL (VITD3) 2,000 UNIT CAP/TAB PO SCH (10:27)
[2021-06-09] MEDS: ENOXAPARIN SOD 40 MG/0.4 ML SYRINGE SC SCH (10:27)
[2021-06-09] MEDS: ASPirin 81 mg TAB PO SCH (10:28)
[2021-06-09] MEDS: DexAMETHasone SOD PHOS 4 MG/1ML SDV INJ IV SCH (10:28)
[2021-06-09] MEDS: SODIUM CHLOR 0.9% PF (SALINE LOCK) 10ML VIAL/SYR IV SCH ×2 (10:28→22:59)
[2021-06-09] MEDS: ASCORBIC ACID 500 MG TAB PO SCH (10:29)
[2021-06-09] MEDS: LISINOPRIL 10 MG TAB PO SCH (10:29)
[2021-06-09] MEDS: ZINC SULFATE 220mg CAP or TAB PO SCH (10:30)
[2021-06-09] MEDS: METOPROLOL TARTRATE 25 MG TAB PO SCH ×2 (10:31→22:59)
[2021-06-09] MEDS: SODIUM CHLORIDE 0.9% 1,000 ML IV SCH (10:43)
[2021-06-09] MEDS: ATORVASTATIN 20 MG TAB PO SCH (22:59)
[2021-06-10 06:00] VITALS: BP 129/83
[2021-06-10] MEDS: InsuLIN REG 1unit/0.01ml Soln (100units/ml) SC SCH ×4 (06:00→23:00)
[2021-06-10] MEDS: INSULIN LANTUS (GLARGINE) 1 /0.01ml (100units/ml) SC SCH ×2 (06:16→22:00)
[2021-06-10] MEDS: ACCU-CHEK COMFORT CURVE STRIP VI SCH ×4 (06:17→23:00)
[2021-06-10] MEDS: ASCORBIC ACID 500 MG TAB PO SCH (10:05)
[2021-06-10] MEDS: ZINC SULFATE 220mg CAP or TAB PO SCH (10:05)
[2021-06-10] MEDS: SODIUM CHLOR 0.9% PF (SALINE LOCK) 10ML VIAL/SYR IV SCH ×2 (10:05→22:55)
[2021-06-10] MEDS: DexAMETHasone SOD PHOS 4 MG/1ML SDV INJ IV SCH (10:05)
[2021-06-10] MEDS: PANTOPRAZOLE 40 MG/10 ML VIAL INJ IV SCH (10:05)
[2021-06-10] MEDS: ASPirin 81 mg TAB PO SCH (10:05)
[2021-06-10] MEDS: POTASSIUM EFFERVESENT TAB 25 MEQ PO SCH (10:05)
[2021-06-10] MEDS: METOPROLOL TARTRATE 25 MG TAB PO SCH ×2 (10:06→22:55)
[2021-06-10] MEDS: CHOLECALCIFEROL (VITD3) 2,000 UNIT CAP/TAB PO SCH (10:06)
[2021-06-10] MEDS: LISINOPRIL 10 MG TAB PO SCH (10:07)
[2021-06-10] MEDS: ACETAMINOPHEN 650 mg PER 20.3 mL UD PO PRN (10:08)
[2021-06-10] MEDS: SODIUM CHLORIDE 0.9% 1,000 ML IV SCH (13:00)
[2021-06-10 16:57] VITALS: BP 144/73
[2021-06-10 22:00] VITALS: BP 112/64
[2021-06-10] MEDS: ATORVASTATIN 20 MG TAB PO SCH (22:55)
[2021-06-11 05:00] VITALS: BP 127/73
[2021-06-11] MEDS: InsuLIN REG 1unit/0.01ml Soln (100units/ml) SC SCH ×3 (06:00→17:46)
[2021-06-11] MEDS: ACCU-CHEK COMFORT CURVE STRIP VI SCH ×3 (06:18→17:46)
[2021-06-11] MEDS: INSULIN LANTUS (GLARGINE) 1 /0.01ml (100units/ml) SC SCH (06:18)
[2021-06-11 09:00] VITALS: BP 140/78
[2021-06-11] MEDS: PANTOPRAZOLE 40 MG/10 ML VIAL INJ IV SCH (10:24)
[2021-06-11] MEDS: ASCORBIC ACID 500 MG TAB PO SCH (10:24)
[2021-06-11] MEDS: ZINC SULFATE 220mg CAP or TAB PO SCH (10:24)
[2021-06-11] MEDS: SODIUM CHLOR 0.9% PF (SALINE LOCK) 10ML VIAL/SYR IV SCH (10:24)
[2021-06-11] MEDS: ASPirin 81 mg TAB PO SCH (10:24)
[2021-06-11] MEDS: POTASSIUM EFFERVESENT TAB 25 MEQ PO SCH (10:24)
[2021-06-11] MEDS: DexAMETHasone SOD PHOS 4 MG/1ML SDV INJ IV SCH (10:24)
[2021-06-11] MEDS: LISINOPRIL 10 MG TAB PO SCH (10:25)
[2021-06-11] MEDS: CHOLECALCIFEROL (VITD3) 2,000 UNIT CAP/TAB PO SCH (10:25)
[2021-06-11] MEDS: METOPROLOL TARTRATE 25 MG TAB PO SCH (10:25)
[2021-06-11] MEDS: SODIUM CHLORIDE 0.9% 1,000 ML IV SCH (12:35)
== END 2021-06-11 19:30 | DRG 720 ==
LOC: EDBD 09:19 → ER 09:19 → TELE 13:38 → ICU WEST 05-21 09:18 → TELE-DOU 06-04 15:00 → TELE-EAST 06-04 17:12 → TELE 06-10 06:03 → TELE-EAST 06-10 07:15
PROVIDERS: ADMIT Nurse Practitioner Family; ATTEND Internal Medicine
PROC: XW033E5 Introduction of Remdesivir Anti-infective into Peripheral Vein, Percutaneous Approach, New Technology Group 5 (ICD-10-PCS; 2021-05-20)
PROC: 5A1955Z Respiratory Ventilation, Greater than 96 Consecutive Hours (ICD-10-PCS; principal; 2021-05-21)
PROC: 0BH17EZ Insertion of Endotracheal Airway into Trachea, Via Natural or Artificial Opening (ICD-10-PCS; 2021-05-21)
PROC: 02HV33Z Insertion of Infusion Device into Superior Vena Cava, Percutaneous Approach (ICD-10-PCS; 2021-05-21)
PROC: B548ZZA Ultrasonography of Superior Vena Cava, Guidance (ICD-10-PCS; 2021-05-21)
PROC: 5A09357 Assistance with Respiratory Ventilation, Less than 24 Consecutive Hours, Continuous Positive Airway Pressure (ICD-10-PCS; 2021-06-02)
PROC: 5A09357 Assistance with Respiratory Ventilation, Less than 24 Consecutive Hours, Continuous Positive Airway Pressure (ICD-10-PCS; 2021-06-03)
DX: A41.89 Other specified sepsis (principal); J96.01 Acute respiratory failure with hypoxia; J12.82 Pneumonia due to coronavirus disease 2019; G92.8 Other toxic encephalopathy; R65.21 Severe sepsis with septic shock; U07.1 COVID-19; J98.11 Atelectasis; E88.09 Other disorders of plasma-protein metabolism, not elsewhere classified; N17.9 Acute kidney failure, unspecified; I47.1 Supraventricular tachycardia; E66.9 Obesity, unspecified; E78.5 Hyperlipidemia, unspecified; E87.6 Hypokalemia; E11.9 Type 2 diabetes mellitus without complications; I10 Essential (primary) hypertension; I25.10 Atherosclerotic heart disease of native coronary artery without angina pectoris; I25.2 Old myocardial infarction; Z79.02 Long term (current) use of antithrombotics/antiplatelets; Z68.37 Body mass index [BMI] 37.0-37.9, adult; Z95.5 Presence of coronary angioplasty implant and graft; Z99.81 Dependence on supplemental oxygen; Z90.49 Acquired absence of other specified parts of digestive tract; Z75.1 Person awaiting admission to adequate facility elsewhere; Z79.84 Long term (current) use of oral hypoglycemic drugs
CPT/HCPCS: 31500; 36415; 36569; 36600; 51702; 71045; 80048; 80053; 81001; 82728; 82805; 82962; 83605; 83735; 83880; 84132; 84484; 85007; 85025; 85027; 85610; 87040; 87070; 87081; 87205; 87426; 92610; 93005; 93306; 94002; 94003; 94640; 94660; 96361; 96365; 96367; 96375; 97110; 97163; 97530; 99291; C9113; G0378; J0153; J0696; J1100; J1815; J2250; J2405; J2704; J7060